=== PATIENT | female | born 1955 | race Caucasian/White ===

== ENCOUNTER → 2023-05-22 15:13 | Outpatient (REF) | payer MEDICARE, OTHER, SELFPAY ==
[2023-05-25 11:09] LABS: CA 27-29 133.3 U/mL (<=39.0)
== END ==
LOC: OIDL 15:13
PROVIDERS: ATTENDING PHYSICIAN Internal Medicine Hematology & Oncology
DX: C79.31 Secondary malignant neoplasm of brain (principal); C50.411 Malignant neoplasm of upper-outer quadrant of right female breast
CPT/HCPCS: 86300

== ENCOUNTER 2023-06-02 10:20 | Inpatient (IN) | payer MEDICARE, OTHER, SELFPAY ==
[2023-05-29 22:14] VITALS: BP 108/69
[2023-05-29 22:15] VITALS: BP 108/69
[2023-05-29 23:00] VITALS: BP 117/68
[2023-05-29 23:12] VITALS: BP 117/68
--- NOTE | 2023-05-29 23:55 | ED.GENMED ---
Addendum entered and electronically signed by Germain Wang DO 05/30/23 08:08:
6 AM ER attending
Patient currently waiting for family to pick her up
RN received a call from son he is concerned about her discharge plan he is requesting case management and physical therapy
Daughter apparently works at [employer] and cannot get her until 3 PM
On exam patient resting comfortably malodorous cooperative tells me she lives with her daughter and her zendejas retriever
At this point patient clearly cannot go home on her own, no family here to take her home, concur with PT and case management consult
Will asked hospitalist to admit
Suspect we will have to look into goals of care palliative hospice etc.
Original Note:
History of Present Illness
General
Chief Complaint: Fall
Source: patient and family (Daughter)
Exam Limitations: none
Time Seen by Provider: 05/29/23 23:23
Nursing documentation reviewed up to this point in time: agreed with
Travel History
Have you had any contact with someone who has COVID-19?: No
Do you have any symptoms of coronavirus? Fever > 100 degrees, chills, cough, shortness of breath, sore throat, loss of taste or smell, muscle aches, or headache?: No
History of Present Illness
History of Present Illness:
68-year-old female with past medical history as documented presents to the emergency room for evaluation of generalized weakness. She had a fall tonight. Patient says she feels generally weak chronically and has had progressive functional decline
in the setting of chemotherapy for metastatic breast cancer. She currently is in a wheelchair chronically and lives with her daughter who helps to transfer her to armchair and to bed. Today patient says she has been feeling a bit more weak than
usual. She ate dinner with her daughter and when daughter wheeled her to the bathroom patient had trouble assisting with transfer fell from ground-level onto her knees. She did not hit her head according to daughter. Daughter could not lift
patient on her own and patient was too weak to stand and so EMS called to bring patient to the hospital. While patient and daughter both deny head trauma patient has an abrasion on the center of her forehead that is new according to both daughter
and patient. Patient says she has some mild right knee pain since the fall as well. She denies any other complaints including neck pain, back pain, chest pain, abdominal pain. Aside from feeling weak today she has not had any other specific
symptoms such as cough, fever, chills, urinary symptoms, chest pain, shortness of breath. She believes she may be dehydrated as she says that she does not eat or drink very much because of the chemotherapy.
Past History
Past History
ED Past Medical History: Asthma, Cancer (Breast with Lumpectomy and radiation 2003), Other (DVT, PE, IBS) and Other (Anxiety)
ED Past Surgical History: Orthopedic (bilateral hip replacements L 2020, R 2021)
Social History
Tobacco: Non-smoker
Alcohol: None
Drug: None
Personal:
Living: with family
Employment: Not employed
Family History
Family History: Other (Reviewed and noncontributory)
Review of Systems
Review of Systems
All Other Systems: ROS reviewed and negative except as documented in HPI and ROS
Constitutional: Reports fatigue; Denies fever or chills
EENT: Denies sore throat or runny nose
Respiratory: Denies cough or trouble breathing
Cardiac: Denies chest pain
ABD/GI: Denies abdominal pain, nausea, vomiting or diarrhea
: Denies dysuria, frequency or flank pain
Musculoskeletal: Reports joint pain (Right knee pain); Denies neck pain or back pain
Neurological: Reports weakness (Generalized); Denies headache or numbness
Phy Exam
Physical Exam
Physical Exam:
General: Awake, alert; no acute distress
Head: Normocephalic, minor abrasion of the center of her forehead
Eyes: Conjunctiva normal, pupils equal round and reactive to light bilaterally
Throat: Airway intact, dry mucous membranes; poor dentition
Neck: Trachea midline, no tenderness of the cervical spine
Back: No signs of trauma to the back or flank and no tenderness of the thoracic or lumbar spine
Lungs: Clear to auscultation bilaterally, no wheezing, rales, rhonchi
Heart: Regular rate and rhythm, no murmurs, gallops, or rubs
Abd: Soft, non distended, nontender
Neuro: Cranial nerves grossly intact, speech fluid
Extremities: Patient has mild medial right knee tenderness but no significant joint effusion, full range of motion with only mild discomfort; she has no pain with manipulation of the right patella, no lateral joint line tenderness, no tenderness of
the right lower leg; rest of extremities are atraumatic and she moves them through comfortable range of motion; she has good pulses in all extremities
Scores
Heart Failure Risk
Heart Failure Risk Score: Not Applicable
Heart Score for Chest Pain Patients
STEMI patient?: Not applicable
Withdrawal Assessment of Alcohol
Withdrawal Assessment Completed?: Not applicable
Course
Orders/Labs/Results
Orders:
Orders
05/29/23 23:50
COVID-19 Antigen Urgent
Source: Nasal Swab
Complete Blood Count/With Diff Urgent
Comprehensive Metabolic Panel Urgent
Magnesium Urgent
05/29/23 23:51
Electrocardiogram (*1) Urgent
Reason for Study: Fatigue / Weakness
EKG- Treatment ONCE
Urinalysis Reflex To Culture Urgent
Date Specimen was Collected: 05/30/23
Time Specimen was Collected: 03:09
Influenza A+B Rapid Molecular Urgent
CHRISTIANE Source: Nasal Swab
Specimen Description:
05/29/23 23:54
0.9% Sodium Chloride 1000 ml [Nss] 1,000 ml IV BOLUS
05/30/23 00:01
CR Chest - 2 Views Urgent
Reason For Exam: weakness
CR Knee- Right 4 Or More View* Urgent
Reason For Exam: right medial knee pain
05/30/23 00:15
CT Head W/o Iv Contrast Urgent
Reason For Exam: fall with frontal
05/30/23 03:13
Urine Microscopic Reflex Cult Urgent
Urine Culture Urgent
CHRISTIANE Source: U
Specimen Description:
Date Specimen was Collected: 05/30/23
Time Specimen was Collected: 03:09
Abnormal Lab Results
05/30/23 05/30/23
00:08 03:13
RBC 3.58 L 10^6/uL
(4.20-5.40)
Hgb 11.3 L g/dL
(12.0-16.0)
Hct 31.9 L %
(37.0-47.0)
MCH 31.6 H pg
(27.0-31.0)
RDW 19.2 H %
(11.5-14.5)
Absolute Neuts (auto) 6.8 H 10^3/uL
(1.4-6.5)
Absolute Lymphs (auto) 0.7 L 10^3/uL
(1.2-3.4)
Neutrophils % 84.9 H %
(42.2-75.2)
Lymphocytes % 8.4 L %
(20.5-51.1)
Sodium 132 L mmol/L
(135-145)
Chloride 108 H mmol/L
(98-107)
Carbon Dioxide 19 L mmol/L
(22-30)
Glucose 134 H mg/dl
(70-99)
Alkaline Phosphatase 227 H U/L
(38-126)
Urine Ketones 1+ A
(Negative)
Urine Nitrite (Reflex) Positive A
(Negative)
Urine Bilirubin 1+ A
(Negative)
Leukocyte Esterase Rfl 1+ A
(Negative)
05/30/23 00:08
05/30/23 00:08
Vital Signs
Initial and Last Documented VS:
Initial Vital Signs
Resp BP Pulse Ox
19 108/69 100
05/29/23 22:14 05/29/23 22:14 05/29/23 22:14
Last Documented Vital Signs
Temp Pulse Resp BP Pulse Ox
36.4 C 83 15 130/69 98
05/29/23 22:15 05/30/23 03:15 05/30/23 03:15 05/30/23 03:00 05/30/23 02:45
MDM/Problems Addressed
Differential Diagnosis Includes:
Differential diagnosis for generalized weakness is wide and includes but is not limited to: Dehydration, anemia, electrolyte derangement, infection, chemotherapy/medication side effect
MDM/Problems Addressed:
68-year-old female presents for evaluation of generalized weakness today also had a minor fall onto her knees with questionable head trauma (she denies hitting her head and symptoms her daughter but she does have a new abrasion on her forehead).
Vital signs normal here, exam as above. Plan to place an IV check labs including CBC and CMP. Will check an EKG. Will swab for COVID and flu. Check CT head. Will check urinalysis and a chest x-ray. Sent for an x-ray of the knee as well. Will
provide some fluids. Monitor closely reassess after the above.
Labs reviewed: CBC shows slight anemia stable. CMP shows no clinically significant abnormalities. Viral swabs are negative. X-ray of the chest no pneumonia. X-ray of the knee no fracture.
Urinalysis positive for infection which certainly could be a cause for her increased weakness recently. Fortunately she has no signs of sepsis labs have otherwise been reassuring. She is wheelchair-bound at baseline. No clear indication for
admission I think it is reasonable to treat with a dose of IV antibiotics here and discharged on oral antibiotic. Patient comfortable this plan.
Chronic conditions affecting care:
Metastatic breast cancer
*Radiology
Radiology exam reviewed: preliminary read by ED provider and radiology read reviewed
*Pulse Oximetry
Patient hypoxic: no
*Critical Care Note
Total Time (30-74mins, 75-104mins- exclusive of procedures): Not Applicable
Data Reviewed
Review of Other/Old Records Reveals: Labs and Records
Source: patient and family (Spoke directly with her daughter on the phone)
ED Attending Note
-
Portions of this chart may have been created with voice recognition software.� Occasional wrong word or��sound alike� substitutions may have occurred due to the inherent limitations of voice recognition software.
Discharge Plan
Departure
Patient Disposition: Home (Routine Discharge)
Date of Disposition: 05/30/23
Time of Disposition: 03:46
Patient with high blood pressure during this ER visit?: No
Discharge Problem:
Acute UTI, Weakness, Sprain of knee
Instructions: Generalized Weakness (DC), Acute Cystitis (DC), Knee Sprain ED
Prescriptions:
New
cefdinir 300 mg capsule
300 mg PO BID Qty: 14 0RF
No Action
albuterol sulfate 18 GM HFA aerosol inhaler
2 puff IH R Q6HPRN PRN (Reason: asthma)
megestrol 400 mg/10 mL (40 mg/mL) Suspension
8,000 mg PO DAILY
Eliquis 2.5 mg Tablet
2.5 mg PO BID
fluticasone propion-salmeterol [Advair Diskus] 250-50 mcg/dose Blister With Device
1 inh INHALATION R BID
levetiracetam 500 mg tablet
1,000 mg PO BID
pantoprazole [Protonix] 40 mg tablet,delayed release (DR/EC)
40 mg PO DAILY
letrozole 2.5 mg tablet
2.5 mg PO DAILY
quetiapine [Seroquel] 50 mg tablet
50 mg PO HS
dronabinol 2.5 mg Capsule
2.5 mg PO BID Qty: 60 1RF
sodium bicarbonate 650 mg Tablet
650 mg PO BID Qty: 8 0RF
ondansetron 4 mg tablet,disintegrating
4 mg PO Q8HPRN PRN (Reason: nausea and vomiting) Qty: 30 0RF
cephalexin 500 mg capsule
500 mg PO TID Qty: 15 0RF
Referrals:
Renard Persaud MD [Family Provider] - Call in 1-3 days for appt
Activity Restrictions/Additional Instructions:
Thank you for visiting the Emergency Department at [facility].
1. Please schedule a follow up appointment as directed. Call first thing tomorrow morning to make an appointment.
2. If indicated, please take your medications as instructed and indicated on discharge paperwork.
3. If any of your symptoms do not improve, or persist, or become more severe within 6-12 hours, please return to the emergency department for further care.
4. Please return to the emergency department if you develop a headache, neck pain/stiffness, fever greater than 100.4F, chest pain, shortness of breath, persistent nausea, vomiting, slurred speech, difficulty walking, numbness/tingling, weakness,
signs of infection or any other symptoms that are worrisome to you.
Please call [phone] if you have any questions.
Interventions
Interventions:
*Risk Screen - Suicide Last Done: 05/29/23 22:22
*General Assessment Last Done: 05/29/23 22:22
*Neglect/Abuse Screening Last Done: 05/29/23 22:22
*ED COVID-19 Vaccine History Last Done: 05/29/23 22:21
ED-Musculoskeletal Assessment Last Done: 05/29/23 22:23
ED- Neurological Assessment Last Done: 05/29/23 22:22
ED-Skin Assessment Last Done: 05/29/23 22:23
[2023-05-30] VITALS (15 sets, daily range): BP systolic 115–147; BP diastolic 58–103; PULSE 91; O2SAT 99; BMI 27.5
[2023-05-30 00:55] LABS: COVID-19 Antigen Negative (Negative)
[2023-05-30 01:14] LABS: % Basophils 0.6 % (0-2); % Eosinophils 0.6 % (0-6); % Immature Granulocytes 0.4 % (0-0.5); % Lymphocytes 8.4 % (20.5-51.1); % Monocytes 5.1 % (1.7-9.3); % Neutrophils 84.9 % (42.2-75.2); Absolute Basophils 0.1 10^3/uL (0-0.2); Absolute Eosinophils 0.1 10^3/uL (0-0.7); Absolute Lymphocytes 0.7 10^3/uL (1.2-3.4); Absolute Monocytes 0.4 10^3/uL (0.1-0.6); Absolute Neutrophils 6.8 10^3/uL (1.4-6.5); Hematocrit 31.9 % (37.0-47.0); Hemoglobin 11.3 g/dL (12.0-16.0); Mean Corp Hgb Conc. 35.4 g/dL (33.0-37.0); Mean Corpuscular Hgb 31.6 pg (27.0-31.0); Mean Corpuscular Volume 89.1 fL (81.0-99.0); Mean Platelet Volume 9.1 fL (7.4-10.4); Nucleated Red Blood Cells % 0 %; Platelet Count 280 10^3/uL (130-400); Red Blood Cell Count 3.58 10^6/uL (4.20-5.40); Red Cell Dist. Width 19.2 % (11.5-14.5)
[2023-05-30] MEDS: NSS 1000 IV ×2 (01:27→08:09)
[2023-05-30 01:29] LABS: ALT (SGPT) 11 U/L (0-35); AST (SGOT) 22 U/L (14-36); Albumin 3.5 g/dl (3.5-5.0); Alkaline Phosphatase 227 U/L (38-126); Blood Urea Nitrogen 13 mg/dl (7-17); Calcium 8.8 mg/dl (8.4-10.2); Carbon Dioxide 19 mmol/L (22-30); Chloride 108 mmol/L (98-107); Glucose 134 mg/dl (70-99); Magnesium 1.9 mg/dl (1.6-2.3); Potassium 3.7 mmol/L (3.5-5.1); Sodium 132 mmol/L (135-145); Total Bilirubin 0.9 mg/dl (0.2-1.3); Total Protein 6.6 g/dl (6.3-8.2); eGFR > 60.00
[2023-05-30 03:31] LABS: Urine Albumin Trace (Neg - Trace); Urine Bilirubin 1+ (Negative); Urine Character Clear (Clear); Urine Color Yellow; Urine Glucose Negative (Negative); Urine Ketone 1+ (Negative); Urine Leukocyte 1+ (Negative); Urine Nitrite Positive (Negative); Urine Occult Blood Negative (Negative); Urine Urobilinogen Negative (Neg - 1+)
[2023-05-30 03:39] LABS: Urine Amorphous Seen; Urine Mucus Moderate; Urine Squamous Cell >30 /LPF (Few)
[2023-05-30 03:40] LABS: Urine Bacteria Many (Negative)
[2023-05-30 03:44] LABS: Urine Red Blood Cell 0-2 /HPF (0-2); Urine White Cell 30-40 /HPF (0-5)
[2023-05-30] MEDS: ROCEPHIN 1000 MG IV ×2 (03:58→12:02)
--- NOTE | 2023-05-30 08:26 | CM ---
Addendum entered by Vanessa Carlisle RN 05/30/23 09:55:
CM spoke with son Corby [phone]. CM confirmed that there is no POA at this time and the family is working on POA paperwork.
Corby stated that he feels the patient's functional status has declined and his sister Merlene who is the patient's caregiver is overwhelmed. Merlene works real time analyst so patient is left home alone during that time. Patient is known to [facility]. Corby is
requesting possible SNF options so patient can regain some function and patient's daughter's caregiver burden is lightened.
CM discussed with patient's son that patient may not meet three night inpatient stay criteria for Medicare to pay for SNF. CM confirmed with [facility] leather goods sales representative that patient would be eligible for the [facility] program.
CM presented this to the son and he was agreeable understanding there would be limited choices of SNF that participate in the program. CM will send referrals to [facility].
Original Note:
CM reviewed medical records and previous admissions. [facility] lia[facility] to confirm if patient was still active with them. CM will follow for discharge planning needs.
--- NOTE | 2023-05-30 10:24 | HPS.HSE ---
Family Physician
-
Family Physician: Renard Persaud
Chief Complaint
-
weakness
History of Present Illness
68-year-old female with metastatic breast cancer. Lives at home with daughter. Patient is mostly chair/wheelchair bound. States that her daughter has to give total from chair and put on the wheelchair and had blood. She is also incontinent most
of the time. Patient states that she is 'Prisoner in my home' because of her lack of mobility. She states that she was taking 2 different hormonal agents which caused neuropathy. She was feeling weak hand and daughter tried to help her to
bathroom. She slowly went down to the floor. Daughter: And very weak so EMS was called and she was brought into the hospital. She denies any pain other than her inability to walk neuropathy which has been progressive. No headache
Medical History
Past Medical History
Past Medical History: Reports Seizures
Additional Past Medical History:
Breast cancer with lumpectomy, radiation and tamoxifen in 2003, Metastatic breast cancer now ER/MO positive and HER2 negative ,brain mets with vasogenic edema and seizures was on Keppra . Completed brain radiation in November 2022.And started
Ibrance December , neuropathy NOS with ambulatory dysfunction, asthma, IBS, arthritis, DVT and PE on Eliquis, with recurrence October 2022 while off of Eliquis. Depression, anxiety chronic back pain on long-term disability
Past Surgical History: Reports Tonsilectomy and Other
Additional Past Surgical History:
Lumpectomy for breast cancer, left and right hip surgery
Social History
Tobacco: Non-smoker
Alcohol: None
Drug: None
Personal:
Living: With Family
Employment: Disabled
Family History
Family History: Cancer (father stomach ca, Mom uterine ca)
Allergies / Home Medications
Allergies reflects when Allergies were last updated in [facility].
Home Medications with original date entered in [facility]
Allergy/Medication List:
Allergies
Allergy/AdvReac Type Severity Reaction Status Date / Time
nickel Allergy Rash Verified 05/29/23 22:30
pneumococcal vaccine Allergy afraid of, Verified 05/29/23 22:30
unk if
allergic
Home Medications
apixaban 2.5 mg tablet (Eliquis) 2.5 mg PO BID Blood Clot Prevention/Tx 04/08/23
fluticasone 250 mcg-salmeterol 50 mcg/dose blistr powdr for inhalation (Advair Diskus) 1 inh inhalation R BID Lung/Breathing Issues 04/08/23
megestrol 400 mg/10 mL (40 mg/mL) oral suspension 800 mg PO DAILY appetite stimuant/hormonal agent 04/08/23
pantoprazole 40 mg tablet,delayed release (Protonix) 40 mg PO DAILY Gastrointestinal Issue 04/08/23
quetiapine 50 mg tablet (Seroquel) 50 mg PO HS Neurological Condition 04/08/23
dronabinol 2.5 mg capsule 2.5 mg PO BID #60 caps 04/09/23
ondansetron 4 mg disintegrating tablet 4 mg PO Q8HPRN PRN nausea and vomiting #30 tabs 04/09/23
albuterol sulfate 90 mcg/actuation aerosol inhaler 2 puff inhalation R Q4HPRN PRN sob 05/30/23
cefdinir 300 mg capsule 300 mg PO BID #14 caps 05/30/23
gabapentin 100 mg capsule 300 mg PO HS 05/30/23
levetiracetam 1,000 mg tablet 1,000 mg PO Q12H 05/30/23
Review of Systems
-
A 12 point ROS was completed and negative except as noted: Yes
Constitutional: Reports Fatigue
Respiratory: Denies Trouble Breathing
Cardiac: Denies Chest Pain
Neurological: Reports Weakness and Numbness
Psych: Reports Depression
Physical Exam
Vital Signs
Vital Signs
Temp Pulse Resp BP Pulse Ox
97.6 F 78 18 140/61 98
05/29/23 22:15 05/30/23 10:00 05/30/23 10:00 05/30/23 10:00 05/30/23 02:45
Physical Exam
General: Conversant and Other (Halitosis, Poor Oral Hygene, Malodorous, Disheveled appearence)
Respiratory: Clear
Cardiac: S1/S2 and Regular Rhythm
GI: Soft, Non Tender and Normal Bowel Sounds
Skin: Warm
Neuro: AO x 3 and Other (Proximal muscle weakness, good distal strengthMuscle wasting bilateral hands good hand grasp again proximal muscles are very weak, chronic numbness of lower extremities and hands)
Psych: Intact Judgment/Insight
Laboratory Results
-
05/30/23 00:08
05/30/23 00:08
Laboratory Results
Total Bilirubin 0.9 mg/dl (0.2-1.3) 05/30/23 00:08
AST 22 U/L (14-36) 05/30/23 00:08
ALT 11 U/L (0-35) 05/30/23 00:08
Alkaline Phosphatase 227 U/L (38-126) H 05/30/23 00:08
Data Reviewed
-
Diagnostic Radiology: Image Personally Visualized and interpreted (Chest x-ray metastatic osseous lesions no acute changes) and Report Reviewed by me (X-ray of the knee-right moderate tricompartment osteoarthritis with small to moderate
suprapatellar joint effusion)
CT Scan: Report Reviewed by me (Head CT no acute. Mastoiditis, metastasis right parietal)
Medical Tests (Nuc Med, Echo, EKG etc): Image Personally Visualized and interpreted (Sinus rhythm with PVCs, nonspecific ST-T changes)
Impression/Plan
-
IMPRESSION/PLAN:
# Generalized weakness/deconditioning
Patient is in very poor shape in terms of hygiene, unkempt appearance poor oral hygiene
Global weakness and deconditioning likely secondary to neuropathy, malignancy and being on treatment
PT OT
Placement if possible
Head CT metastatic lesion again found
# UTI-ceftriaxone
Wait for cultures
# Mild hyponatremia-likely SIADH check serum and urine osmolality and urine sodium
# History of right breast cancer-diagnosed in 2003 treated with radiation, lumpectomy and possibly tamoxifen.
Follows with Dr. Renay Gonzalez.
October 2022-diagnosed with multiple dural based [employer] mets with vasogenic edema-placed on Keppra and Decadron. Not on Decadron anymore. She completed radiation treatment in November
Now has metastatic breast cancer with right-sided breast mass in the upper outer quadrant, mediastinal adenopathy, lung nodules, bone metastasis. Breast biopsy invasive ductal carcinoma ER/MO positive and HER2 negative.
Patient was started on letrozole 2.5 mg daily and Ibrance in December 2022
Started on Faslodex March 2023 because of progression on Ibrance plus letrozole.
Last PET scan 04/02/2023-interval worsening of disease.
Heme eval - Prognosis?
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
# Chronic back pain
#Anxiety depression-Seroquel
# Malnutrition-type unclear
Continue dronabinol, Megace
# Neuropathy-likely secondary to malignancy/chemo/hormonal therapy
Continue gabapentin
# Asthma-stable exam-continue Advair, albuterol inhalers as needed
# Gait dysfunction mostly wheelchair/chair bound.
# Osteoarthritis
# Obesity
# IBS
# DVT prophylaxis-Eliquis
# CODE STATUS discussed with the patient in detail she wants to be a full code
D/W ER attending.
--- NOTE | 2023-05-30 11:24 | CON.ONC ---
Addendum entered and electronically signed by Fracisco Knott MD 05/30/23 15:12:
Oncology Addendum:
Patient seen and evaluated - agree w/ HHAS note and plan as outlined
-metastatic breast cancer presenting w/ profound weakness and ambulatory dysfunctoin
-PT/OT consult
-cont suppotive care
-goals of care discussions ongoing
Will continue to follow with you.
Original Note:
Impression
Impression
Metastatic breast cancer s/p lumpectomy/XRT (2003) with mets to brain (XRT 11/2022), bone and lung (Ibrance 12/2022)
Palliative hormonal therapy (Letrozole discontinued, Faslodex on hold as of 05/22/23)
Profound weakness
Failure to thrive
Dry heaving, poor PO intake
Traumatic falls, ambulatory dysfunction
Acute urinary tract infection
Anxiety
Plan
Plan
04/02/23 PET/CT: Small�FDG�avid�posterior�right�iliac�bone�lesion�with�max�SUV�11.1�(previously�3.4�and�less�
discrete).�Otherwise�extensive�diffuse�widespread�non-FDG�avid�sclerotic�lesions�throughout�all�the�visualized�
bones,�markedly�progressed�from�prior�and�suggestive�of�treated/quiescent�disease.��
05/25/23 CA 27-29: 133.3
Discontinued Letrozole, Faslodex is on hold x2 weeks (as of 05/22/23)
05/29 Urinalysis +nitrites, culture pending
Treatment of acute UTI per primary team: Ceftriaxone
Physical therapy evaluation
Nutrition/nutrient management specialist consult
Supportive care
SNF placement
Consider psych eval
Goals of care discussion may be warranted due to profound progressive weakness, failure to thrive, and worsening performance status. Daughter is unable to care for patient at home. Patient states she is not ready to discuss palliative care or
hospice. She requests full code. Patient is scheduled to return to [place] for potential rechallenge of Faslodex 06/05. Possible option for [facility] therapy per Dr. Gonzalez's most recent office note. The office has been notified of hospital
admission and follow up will be adjusted accordingly. We will follow.
Patient History
History of Present Illness
June Parker is a 68 year old female known to Dr. Gonzalez at [facility] for history of metastatic breast cancer. Recent PET performed at the beginning of the year showed marked interval worsening of sclerotic metastatic disease consistent with
progression. Letrozole was discontinued and Faslodex is being held for 2 weeks (as off 05/22/23).
Patient presented to the ER yesterday, , via EMS, complaining of worsening generalized weakness. She has required a wheelchair and assist x1 at home. She, unfortunately, suffered a fall to her knees in the bathroom. Patient and daughter denied
head trauma/LOC. She repots mild knee pain from the fall, poor oral intake, and dehydration. She states 'nothing tastes good' and she has little to no appetite. She reports dry heaving bilious material at home and intermittent nausea. She tries to
hydrate adequately with water. Denies fever, chills.
Past-Medical/Surgical History
Metastatic breast cancer (ER/[place] pos, HER2 neg) w/ mets to brain, bone (lumpectomy 2003, XRT 2022, Ibrance 2022)
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
Ambulatory dysfunction w/ recent falls
Hx Vasogenic edema, seizures (Keppra)
Depression/anxiety
B/l hip replacements (2020,2021)
Chronic back pain
Hx long-term use of aromatase inhibitors
Patient Medication
Medication Instructions Recorded Confirmed Last Taken Type
apixaban 2.5 mg tablet (Eliquis) 2.5 mg PO BID Blood Clot 04/08/23 05/30/23 05/29/23 History
Prevention/Tx
fluticasone 250 mcg-salmeterol 50 1 inh inhalation R BID 04/08/23 05/30/23 05/29/23 History
mcg/dose blistr powdr for Lung/Breathing Issues
inhalation (Advair Diskus)
megestrol 400 mg/10 mL (40 mg/mL) 800 mg PO DAILY appetite 04/08/23 05/30/23 05/29/23 History
oral suspension stimuant/hormonal agent
pantoprazole 40 mg tablet,delayed 40 mg PO DAILY Gastrointestinal 04/08/23 05/30/23 04/08/23 History
release (Protonix) Issue
quetiapine 50 mg tablet (Seroquel) 50 mg PO HS Neurological Condition 04/08/23 05/30/23 05/29/23 History
dronabinol 2.5 mg capsule 2.5 mg PO BID #60 caps 04/09/23 05/30/23 05/29/23 Rx
ondansetron 4 mg disintegrating 4 mg PO Q8HPRN PRN nausea and 04/09/23 05/30/23 2 Days Ago Rx
tablet vomiting #30 tabs ~05/28/23
albuterol sulfate 90 mcg/actuation 2 puff inhalation R Q4HPRN PRN sob 05/30/23 05/30/23 Unknown History
aerosol inhaler
cefdinir 300 mg capsule 300 mg PO BID #14 caps 05/30/23 Unknown Rx
gabapentin 100 mg capsule 300 mg PO HS 05/30/23 05/30/23 05/29/23 History
levetiracetam 1,000 mg tablet 1,000 mg PO Q12H 05/30/23 05/30/23 05/29/23 History
Active Medications
Generic Name Dose Route Start Last Admin
Trade Name Freq PRN Reason Stop Dose Admin
Apixaban 2.5 mg 05/30/23 11:02
Apixaban (Eliquis) 2.5 Mg Tablet PO 06/27/23 11:01
BID ANTONIO
Ceftriaxone Sodium 1,000 mg 05/30/23 12:00
Ceftriaxone 1000 Mg / 10 Ml Vial IV
Q24H ANTONIO
Review of Systems
-
History Source: Patient, Coordinated Provider and Records
Constitutional: Reports No Appetite and Weakness
EENT: Reports No Symptoms
Respiratory: Reports No Symptoms
Cardiac: Reports No Symptoms
GI: Reports Nausea and Anorexia
Breast: Reports N/A
: Reports UTI
Musculoskeletal: Reports Muscle Weakness
Skin: Reports Other (abrasion)
Neuro: Reports Weakness
Endocrine: Reports No Symptoms
Hematologic/Lymphatic: Reports No Symptoms
Allergy / Immunology: Reports No Symptoms
Psych: Reports Anxious
Physical Exam
-
Patient resting on stretcher. She denies acute pain. She is adamant that she wishes to be Full Code, resuscitated if needed, and 'treated like my cancer is curable'. She is not interested in goals of care, palliative care, or hospice discussion. She
is very concerned that she cannot eat.
General: Comfortable, Conversant, Appears Chronically Ill and Obese; Negative Fever or Chills
HEENT: Other (halitosis, poor oral hygiene)
Cardiology: S1 and S2
Pulmonary: Clear
GI: Normal Bowel Sounds
Genito-Urinary: Deferred by me
Extremities: Pulses Present
Skin: Warm, Dry and Other (pallor, abrasion to forehead )
Hematologic / Lymphatic: No Petechiae
Psych: Anxious and Other (pressured speech)
Labs
Lab Results
WBC 8.0 10^3/uL (4.8-10.8) 05/30/23 00:08
RBC 3.58 10^6/uL (4.20-5.40) L 05/30/23 00:08
Hgb 11.3 g/dL (12.0-16.0) L 05/30/23 00:08
Hct 31.9 % (37.0-47.0) L 05/30/23 00:08
MCV 89.1 fL (81.0-99.0) 05/30/23 00:08
MCH 31.6 pg (27.0-31.0) H 05/30/23 00:08
MCHC 35.4 g/dL (33.0-37.0) 05/30/23 00:08
RDW 19.2 % (11.5-14.5) H 05/30/23 00:08
Plt Count 280 10^3/uL (130-400) 05/30/23 00:08
MPV 9.1 fL (7.4-10.4) 05/30/23 00:08
Abs Immat Gran (auto) 0.0 10^3/uL (0-0.05) 05/30/23 00:08
Absolute Neuts (auto) 6.8 10^3/uL (1.4-6.5) H 05/30/23 00:08
Absolute Lymphs (auto) 0.7 10^3/uL (1.2-3.4) L 05/30/23 00:08
Absolute Monos (auto) 0.4 10^3/uL (0.1-0.6) 05/30/23 00:08
Absolute Eos (auto) 0.1 10^3/uL (0-0.7) 05/30/23 00:08
Absolute Basos (auto) 0.1 10^3/uL (0-0.2) 05/30/23 00:08
Immature Gran % 0.4 % (0-0.5) 05/30/23 00:08
Neutrophils % 84.9 % (42.2-75.2) H 05/30/23 00:08
Lymphocytes % 8.4 % (20.5-51.1) L 05/30/23 00:08
Monocytes % 5.1 % (1.7-9.3) 05/30/23 00:08
Eosinophils % 0.6 % (0-6) 05/30/23 00:08
Basophils % 0.6 % (0-2) 05/30/23 00:08
Creatinine 0.8 mg/dL (0.6-1.0) 05/30/23 00:08
Vital Signs
Vital Signs
Temp Pulse Resp BP Pulse Ox
97.6 F 79 23 147/85 98
05/29/23 22:15 05/30/23 11:15 05/30/23 11:15 05/30/23 11:00 05/30/23 02:45
05/30/23 CXR: Couple of ill-defined densities/nodules projecting over the peripheral aspects of the right mid to lower lung, likely corresponding to patient's known sclerotic metastatic osseous lesions versus less likely nodules.
05/30/23 Knee Xray: No acute fractures appreciated.Moderate tricompartmental osteoarthritis with likely small to moderate suprapatellar joint effusion.
05/30/[address]: No acute intracranial abnormality.Opacified mastoid air cells suggesting mastoiditis. Ill defined lucency within the right parietal calvarium, better characterized on prior MRI and felt to represent a metastasis. This appears
decreased in size compared to prior CT.
[2023-05-30 11:49] LABS: Osmolality Serum 286 mOsm/kg (275-300)
[2023-05-30] MEDS: KEPPRA 1000 MG PO ×2 (12:02→21:30)
[2023-05-30] MEDS: ELIQUIS 2.5 MG PO ×2 (12:02→21:30)
[2023-05-30 13:20] LABS: Cortisol, Random 12.4 ug/dl; TSH 1.84 uIU/ml (0.47-4.68)
[2023-05-30] MEDS: MEGACE ORAL SUSPENSION 800 MG PO (14:29)
[2023-05-30] MEDS: PROTONIX 40 MG PO (14:29)
[2023-05-30] MEDS: MARINOL 2.5 MG PO (16:15)
[2023-05-30 18:14] LABS: Osmolality Urine 599 mOsm/kg (300-900)
[2023-05-30 18:55] LABS: Urine Sodium 187 mmol/L (30-90)
[2023-05-30] MEDS: ADVAIR HFA 115/21 MCG INHALER 2 PUFF INH (19:53)
[2023-05-30] MEDS: SEROQUEL 50 MG PO (21:30)
[2023-05-30] MEDS: NEURONTIN 300 MG PO (21:31)
[2023-05-31 07:57] VITALS: BP 135/65
[2023-05-31] MEDS: ADVAIR HFA 115/21 MCG INHALER 2 PUFF INH ×2 (08:03→19:21)
[2023-05-31] MEDS: ELIQUIS 2.5 MG PO ×2 (09:05→20:01)
[2023-05-31] MEDS: MEGACE ORAL SUSPENSION 800 MG PO (09:06)
[2023-05-31] MEDS: KEPPRA 1000 MG PO ×2 (09:06→20:01)
[2023-05-31] MEDS: PROTONIX 40 MG PO (09:06)
[2023-05-31] MEDS: MARINOL 2.5 MG PO ×2 (09:06→17:39)
--- NOTE | 2023-05-31 10:29 | CM ---
Chart reviewed and per physical therapy notes recommendation is for skilled placement. Referrals sent to facilities however no final acceptance.
Plan; To follow up with possible skilled placement.
[2023-05-31 12:15] VITALS: BP 113/73; PULSE 95; O2SAT 98
[2023-05-31 13:13] VITALS: BP 113/73; PULSE 95; O2SAT 98
[2023-05-31] MEDS: FLUSH (NSS) 2 FLUSH IV (13:22)
[2023-05-31] MEDS: ROCEPHIN 1000 MG IV (13:22)
[2023-05-31] MEDS: STERILE WATER FOR INJECTION 10 ML IV (13:22)
--- NOTE | 2023-05-31 13:34 | W.PN.HOSP.TC ---
Today's Communication/Plan
-
BMP
IV fluids-do D5 normal saline for now given low sodium and poor urine output
Continue antibiotics
PT OT
May need placement
Assessment / Plan
Assessment / Plan
CVS: S1-S2 normal
Chest: CTA B/L
Abdomen: Soft, NT / Bowel sounds present
Extremities: No edema, normal pulses
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
Proximal muscle weakness, upper extremity and lower extremity
Neuropathy patient states [id number]
# Generalized weakness/deconditioning
Patient is in very poor shape in terms of hygiene, unkempt appearance poor oral hygiene
Global weakness and deconditioning likely secondary to neuropathy, malignancy and being on treatment
PT OT
Placement if possible
Head CT metastatic lesion again found
# UTI-ceftriaxone
Wait for cultures
# Diminished urine output-will give IV fluids 1 bag
# Mild hyponatremia-SIADH
# History of right breast cancer-diagnosed in 2003 treated with radiation, lumpectomy and possibly tamoxifen.
Follows with Dr. Renay Gonzalez.
October 2022-diagnosed with multiple dural based STITCH BONDING MACHINE OPERATOR mets with vasogenic edema-placed on Keppra and Decadron.� Not on Decadron anymore.� She completed radiation treatment in November
Now has metastatic breast cancer with right-sided breast mass in the upper outer quadrant, mediastinal adenopathy, lung nodules, bone metastasis.� Breast biopsy invasive ductal carcinoma ER/[place] positive and HER2 negative.
Patient was started on letrozole 2.5 mg daily and� Ibrance in December 2022
Started on Faslodex March 2023 because of progression on Ibrance plus letrozole.
Last PET scan 04/02/2023-interval worsening of disease.
Heme eval - Prognosis?
Dr. Knott discussed goals of care with the patient, sounded like she wants to continue with active treatments.
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
# Chronic back pain
#Anxiety depression-Seroquel
# Malnutrition-type unclear
Continue dronabinol, Megace
# Neuropathy-likely secondary to malignancy/chemo/hormonal therapy
Continue gabapentin
# Asthma-stable exam-continue Advair, albuterol inhalers as needed
# Gait dysfunction mostly wheelchair/chair bound.
Has been getting
She has pain and also proximal weakness
MRI T Spine
# Osteoarthritis
# Obesity
# IBS
# DVT prophylaxis-Eliquis
# CODE STATUS discussed with the patient in detail she wants to be a full code
D/W Case management
D/W nursing at bedside
Discussed with patient's daughter on the phone in detail. Family states that she walks all day and patient mostly sits in the chair. She could stand and get to commode or wheelchair in the past however she has not been doing that for the past few
days. She is been progressively getting worse. They were thinking about placing her.
Anticipated Discharge: > 48 hours
Subjective/Interval History
-
Date of Service: May 31, 2023
Objective Data
-
Labs:
Laboratory Results
05/31/23
13:30
Sodium Pending
Potassium Pending
Chloride Pending
Carbon Dioxide Pending
BUN Pending
Creatinine Pending
Glucose Pending
Calcium Pending
Vital Signs:
Vital Signs
Temp Pulse Resp BP Pulse Ox
98.1 F 81 16 135/65 99
05/31/23 07:57 05/31/23 08:07 05/31/23 08:07 05/31/23 07:57 05/31/23 09:00
[2023-05-31] MEDS: MILK OF MAGNESIA 30 ML PO (14:20)
[2023-05-31] MEDS: SENOKOT 8.59999999999999964 MG PO (14:20)
[2023-05-31] MEDS: MIRALAX 17 GRAMS PO (14:20)
[2023-05-31] MEDS: D5/0.9% SODIUM CHLORIDE 1000 IV (14:20)
[2023-05-31 14:30] LABS: Blood Urea Nitrogen 11 mg/dl (7-17); Calcium 8.5 mg/dl (8.4-10.2); Carbon Dioxide 16 mmol/L (22-30); Chloride 108 mmol/L (98-107); Estimated Creatinine Clearance 95 ml/min; Glucose 131 mg/dl (70-99); Potassium 3.3 mmol/L (3.5-5.1); Sodium 134 mmol/L (135-145); eGFR > 60.00
[2023-05-31 15:32] VITALS: BP 127/72
[2023-05-31] MEDS: KCL 40 MEQ PO (16:08)
[2023-05-31] MEDS: SODIUM BICARBONATE 650 MG PO ×2 (16:08→21:22)
--- NOTE | 2023-05-31 17:46 | PTCARENOTE ---
Made Dr. Hansen aware that pt had a small incontinent void this am but none since. Bladder scan at 1230 214ml. IVF started per orders. Bladder scanned pt at 1730 after a saturated incontinence episode for 0ml, will continue to monitor.
[2023-05-31] MEDS: COLACE 100 MG PO (20:01)
--- NOTE | 2023-05-31 20:03 | W.PN.ONC2 ---
Today's Communication / Plan
-
Pt with brain mets at diagnosis.
Progressed on initial therapy and has been generally intolerance of treatment.
I am concerned she may be developing new brain mets and/or leptomeningeal disease.
Plan is noted for MRI T-spine, needs brain and C-spine imaged as well.
Encouraged pt to consider placement as she is failing at home. We will revisit the subject once MRI's are done and resulted.
Impression
Impression
Metastatic breast cancer s/p lumpectomy/XRT (2003) with mets to brain (XRT 11/2022), bone and lung (Ibrance 12/2022)
Palliative hormonal therapy (Letrozole discontinued, Faslodex on hold as of 05/22/23)
Profound weakness
Failure to thrive
Dry heaving, poor PO intake
Traumatic falls, ambulatory dysfunction
Acute urinary tract infection
Anxiety
Plan
Plan
04/02/23 PET/CT: Small�FDG�avid�posterior�right�iliac�bone�lesion�with�max�SUV�11.1�(previously�3.4�and�less�
discrete).�Otherwise�extensive�diffuse�widespread�non-FDG�avid�sclerotic�lesions�throughout�all�the�visualized�
bones,�markedly�progressed�from�prior�and�suggestive�of�treated/quiescent�disease.��
05/25/23 CA 27-29: 133.3
Discontinued Letrozole, Faslodex is on hold x2 weeks (as of 05/22/23)
05/29 Urinalysis +nitrites, culture pending
Treatment of acute UTI per primary team: Ceftriaxone
Physical therapy evaluation
Nutrition/vehicle check in clerk consult
Supportive care
SNF placement
Consider psych eval
Subjective/Objective
Chief Complaint
Breast cancer, weakness, failure to thrive
Subjective
Pt with new lower extremity weakness, numbness in arms.
Vital Signs:
Vital Signs
Temp Pulse Resp BP Pulse Ox
97.9 F 99 20 127/72 100
05/31/23 15:32 05/31/23 19:22 05/31/23 19:22 05/31/23 15:32 05/31/23 19:22
Lab Results:
Laboratory Data
WBC 8.0 10^3/uL (4.8-10.8) 05/30/23 00:08
Hgb 11.3 g/dL (12.0-16.0) L 05/30/23 00:08
Plt Count 280 10^3/uL (130-400) 05/30/23 00:08
eGFR > 60.00 05/31/23 13:30
Physical Exam
Awake, alert
Poor dentition and dental hygeine
[2023-05-31] MEDS: SEROQUEL 50 MG PO (21:22)
[2023-05-31] MEDS: NEURONTIN 300 MG PO (21:22)
[2023-05-31] MEDS: SENOKOT 17.1999999999999993 MG PO (21:23)
[2023-05-31 23:50] VITALS: BP 129/68
[2023-06-01 06:54] LABS: Hematocrit 25.1 % (37.0-47.0); Mean Corp Hgb Conc. 35.1 g/dL (33.0-37.0); Mean Corpuscular Hgb 31.5 pg (27.0-31.0); Mean Platelet Volume 8.8 fL (7.4-10.4); Platelet Count 225 10^3/uL (130-400); Red Blood Cell Count 2.79 10^6/uL (4.20-5.40); Red Cell Dist. Width 19.6 % (11.5-14.5); White Blood Cell Count 4.4 10^3/uL (4.8-10.8)
[2023-06-01 07:10] LABS: Hemoglobin 8.8 g/dL (12.0-16.0)
[2023-06-01 07:17] LABS: Blood Urea Nitrogen 10 mg/dl (7-17); Calcium 8.3 mg/dl (8.4-10.2); Carbon Dioxide 18 mmol/L (22-30); Chloride 109 mmol/L (98-107); Estimated Creatinine Clearance 95 ml/min; Glucose 116 mg/dl (70-99); Magnesium 1.9 mg/dl (1.6-2.3); Potassium 3.6 mmol/L (3.5-5.1); Sodium 134 mmol/L (135-145); eGFR > 60.00
[2023-06-01 07:31] VITALS: BP 117/69
[2023-06-01] MEDS: ADVAIR HFA 115/21 MCG INHALER 2 PUFF INH ×2 (07:49→19:39)
--- NOTE | 2023-06-01 08:10 | PTCARENOTE ---
Made Dr. Hansen aware at this time of critical drop in Hgb to 8.8 this morning from 11.3 yesterday. No apparent signs of bleeding. Dr. Hansen feels like the drop is due to the IVF yesterday, will monitor.
[2023-06-01 08:51] LABS: Iron 45 ug/dl (37-170)
[2023-06-01 09:00] LABS: Percent Saturation 27 % (20-50); Total Iron Binding Capacity 163 ug/dl (265-497)
[2023-06-01] MEDS: ELIQUIS 2.5 MG PO ×2 (09:29→21:20)
[2023-06-01] MEDS: MEGACE ORAL SUSPENSION 800 MG PO (09:29)
[2023-06-01] MEDS: MARINOL 2.5 MG PO ×2 (09:29→16:45)
[2023-06-01] MEDS: KEPPRA 1000 MG PO ×2 (09:29→21:20)
[2023-06-01] MEDS: COLACE 100 MG PO ×2 (09:29→21:19)
[2023-06-01] MEDS: FLUSH (NSS) 1 FLUSH IV (09:30)
[2023-06-01] MEDS: PROTONIX 40 MG PO (09:30)
[2023-06-01] MEDS: SODIUM BICARBONATE 650 MG PO ×3 (09:30→21:20)
[2023-06-01] MEDS: MIRALAX 17 GRAMS PO (09:30)
[2023-06-01 09:42] LABS: Vitamin B12 459 pg/ml (239-931)
[2023-06-01] MEDS: ROCEPHIN 1000 MG IV (12:45)
[2023-06-01] MEDS: STERILE WATER FOR INJECTION 10 ML IV (12:45)
--- NOTE | 2023-06-01 15:36 | W.PN.ONC2 ---
Today's Communication / Plan
-
Await MRI T-spine.
Consider neuro eval, etiology of lower extremity weakness and upper extremity numbness remains elusive.
PS marginal for return to home. Daughter is school laboratory technician and has been trying to life pt herself. Hygeine poor.
Discussed placement which I think would help optimize PS so we could treat her. She feels strongly that she wants to be at home.
Impression
Impression
Metastatic breast cancer s/p lumpectomy/XRT (2003) with mets to brain (XRT 11/2022), bone and lung (Ibrance 12/2022)
Palliative hormonal therapy (Letrozole discontinued, Faslodex on hold as of 05/22/23)
Profound weakness
Failure to thrive
Dry heaving, poor PO intake
Traumatic falls, ambulatory dysfunction
Acute urinary tract infection
Anxiety
Plan
Plan
Discussed MRI brain and MRI C-spine, no explanation for her upper extremity numbness.
She states the numbness started when she started Faslodex started 04/24, second treatment 05/08, third treatment on hold due to multiple complaints.
Await MRI T-spine.
Subjective/Objective
Chief Complaint
Met breast cancer, failure to thrive
Subjective
Denies new complaint.
MRI C-spine and MRI brain done today.
Vital Signs:
Vital Signs
Temp Pulse Resp BP Pulse Ox
97.9 F 80 18 117/69 97
06/01/23 07:31 06/01/23 07:51 06/01/23 07:51 06/01/23 07:31 06/01/23 09:00
Lab Results:
Laboratory Data
WBC 4.4 10^3/uL (4.8-10.8) L 06/01/23 06:45
Hgb 8.8 g/dL (12.0-16.0) L D 06/01/23 06:45
Plt Count 225 10^3/uL (130-400) 06/01/23 06:45
eGFR > 60.00 06/01/23 06:45
Physical Exam
Unchanged. Awake, alert
Thought process impulsive and tangential
Orders
Orders
Orders From Last 24 Hours
06/01/23 06:48
MR Cervical Spine Without & W Routine
06/01/23 08:08
MR Brain W/o & With Contrast Routine
[2023-06-01 15:59] VITALS: BP 120/70
--- NOTE | 2023-06-01 16:34 | W.PN.HOSP.TC ---
Today's Communication/Plan
-
MRI of the thoracic spine
Disposition plan PT OT and placement
Assessment / Plan
Assessment / Plan
CVS: S1-S2 normal
Chest: CTA B/L
Abdomen: Soft, NT / Bowel sounds present
Extremities: No edema, normal pulses
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
Proximal muscle weakness, upper extremity and lower extremity
Neuropathy patient states [id number]
MRI of the brain-no new intraparenchymal brain metastasis. I do not think calvarial metastasis and metastatic dural enhancement in the inferior lateral right frontal region slightly decreased in comparison to MRI from . Decreased v
vasogenic edema in the right frontal lobe
Cervical spine MRI-diffuse osseous metastatic disease throughout the cervical spine and upper thoracic spine. No MRI evidence of pathological compression fracture or extraosseous metastatic soft tissue.
# Generalized weakness/deconditioning
Patient is in very poor shape in terms of hygiene, unkempt appearance poor oral hygiene
Global weakness and deconditioning likely secondary to neuropathy, malignancy and being on treatment
PT OT
Placement if possible
Head CT metastatic lesion again found
# UTI-ceftriaxone
Wait for cultures
#Anemia-
Iron studies
Drop in Hb due to IVF
# Diminished urine output-S/P 1 IVF
# Mild hyponatremia-SIADH
# History of right breast cancer-diagnosed in 2003 treated with radiation, lumpectomy and possibly tamoxifen.
Follows with Dr. Renay Gonzalez.
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
Now has metastatic breast cancer with right-sided breast mass in the upper outer quadrant, mediastinal adenopathy, lung nodules, bone metastasis.� Breast biopsy invasive ductal carcinoma ER/[place] positive and HER2 negative.
Patient was started on letrozole 2.5 mg daily and� Ibrance in December 2022
Started on Faslodex March 2023 because of progression on Ibrance plus letrozole.
Last PET scan 04/02/2023-interval worsening of disease.
Heme eval - Prognosis?
Dr. Knott discussed goals of care with the patient, sounded like she wants to continue with active treatments.
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
# Chronic back pain
#Anxiety depression-Seroquel
# Malnutrition-type unclear
Continue dronabinol, Megace
# Neuropathy-likely secondary to malignancy/chemo/hormonal therapy
Continue gabapentin
# Asthma-stable exam-continue Advair, albuterol inhalers as needed
# Gait dysfunction mostly wheelchair/chair bound.
Has been getting
She has pain and also proximal weakness
MRI T Spine pending
Metastasis cervical spine and brain
# Osteoarthritis
# Obesity
# IBS
# DVT prophylaxis-Eliquis
# CODE STATUS discussed with the patient in detail she wants to be a full code
D/W Oncology yesterday
D/W nursing at bedside
05/31/23-Discussed with patient's daughter on the phone in detail. Family states that she works all day and patient mostly sits in the chair. She could stand and get to commode or wheelchair in the past however she has not been doing that for the
past few days. She is been progressively getting worse. They were thinking about placing her.
Anticipated Discharge: 24 - 48 hours
Subjective/Interval History
-
Date of Service: June 01, 2023
Objective Data
-
Labs:
Laboratory Results
06/01/23
06:45
WBC 4.4 L
Hgb 8.8 L D
Hct 25.1 L
Plt Count 225
Sodium 134 L
Potassium 3.6
Chloride 109 H
Carbon Dioxide 18 L
BUN 10
Creatinine 0.4 L
Glucose 116 H
Calcium 8.3 L
Vital Signs:
Vital Signs
Temp Pulse Resp BP Pulse Ox
97.9 F 100 18 120/70 99
06/01/23 15:59 06/01/23 15:59 06/01/23 15:59 06/01/23 15:59 06/01/23 15:59
I&O
05/31/23 06/01/23 06/02/23
06:59 06:59 06:59
Intake Total 860 / 860
Balance 860 / 860
[2023-06-01] MEDS: CITROMA 300 ML PO (18:23)
[2023-06-01] MEDS: SEROQUEL 50 MG PO (21:20)
[2023-06-01] MEDS: NEURONTIN 300 MG PO (21:20)
[2023-06-01] MEDS: SENOKOT PO ×2 (21:20→22:00)
[2023-06-01 23:10] VITALS: BP 117/66
--- NOTE | 2023-06-02 06:50 | W.PN.HOSP.TC ---
Today's Communication/Plan
-
cont gabapentin
PT/OT
antibiotics advanced to meropenem
replete potassium
Assessment / Plan
Assessment / Plan
Physical Exam
General: No acute distress
CVS: S1-S2 normal
Chest: CTA B/L
Abdomen: Soft, NT / Bowel sounds present
Extremities: No edema, normal pulses
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
Proximal muscle weakness, upper extremity and lower extremity
Neuropathy patient states [id number]
68F Breast Ca Mets Sz Neuropathy amb dysfunction asthma IBS arthritis DVT/PE Eliquis Depression Anxiety Chronic Back pain
MRI of the brain-no new intraparenchymal brain metastasis. I do not think calvarial metastasis and metastatic dural enhancement in the inferior lateral right frontal region slightly decreased in comparison to MRI from . Decreased v
vasogenic edema in the right frontal lobe
Cervical spine MRI-diffuse osseous metastatic disease throughout the cervical spine and upper thoracic spine. No MRI evidence of pathological compression fracture or extraosseous metastatic soft tissue.
MRI T-spine appreciated
-extensive multifocal osseous metastatic disease no MRI evidence for acute path fx or extra osseous ext malignancy
-chronic vertebral endplate fractures T6, T10, T11, and L1
-moderate-sized central disc herniation C4/C5 causing mod spinal cord compression and central nicolette stenosis
-small to moderate disc herniation C5/C6 causing mild spinal cord compression and central canal stenosis
-small disc herniation T7/T8 mild spinal cord compression
-small to moderate sized left central disc herniation T8/T9
# Generalized weakness/deconditioning
Patient is in very poor shape in terms of hygiene, unkempt appearance poor oral hygiene
Global weakness and deconditioning likely secondary to neuropathy, malignancy and being on treatment
PT OT
Placement if possible
Head CT metastatic lesion again found
# UTI
Cx appreciated Klebsiella ESBL
switched from Ceftriaxone to Meroponem
ID eval appreciated
#Anemia-
Iron studies
Drop in Hb due to IVF
H&H stable at this time
# Diminished urine output-S/P 1 IVF
# Mild hyponatremia-SIADH
# History of right breast cancer-diagnosed in 2003 treated with radiation, lumpectomy and possibly tamoxifen.
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
Now has metastatic breast cancer with right-sided breast mass in the upper outer quadrant, mediastinal adenopathy, lung nodules, bone metastasis.� Breast biopsy invasive ductal carcinoma ER/TN positive and HER2 negative.
Patient was started on letrozole 2.5 mg daily and� Ibrance in December 2022
Started on Faslodex March 2023 because of progression on Ibrance plus letrozole.
Last PET scan 04/02/2023-interval worsening of disease.
follows with Dr. Renay Gonzalez
Oncology eval appreciated MRI brain C and T spine results do not explain patient's lower ext weakness and upper ext numbness.
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
# Chronic back pain
#Anxiety depression-Seroquel
# Malnutrition-type unclear
Continue dronabinol, Megace
# Neuropathy-likely secondary to malignancy/chemo/hormonal therapy
Continue gabapentin current 300 mg HS
will convert to TID starting 06/03
# Asthma-stable exam-continue Advair, albuterol inhalers as needed
# Gait dysfunction mostly wheelchair/chair bound.
Has been getting
She has pain and also proximal weakness
MRI T Spine pending
Metastasis cervical spine and brain
# Osteoarthritis
# Obesity
# IBS
# DVT prophylaxis-Eliquis
# CODE STATUS discussed with the patient in detail she wants to be a full code
05/31/23-Hospitalist discussed with patient's daughter on the phone in detail. Family states that she works all day and patient mostly sits in the chair. She could stand and get to commode or wheelchair in the past however she
has not been doing that for the past few days. She is been progressively getting worse. They were thinking about placing her.
I spent a total of 58 minutes with the patient or on the floor. More than 50% of this time involved counseling and coordination of care.
Anticipated Discharge: 24 - 48 hours
Subjective/Interval History
-
Date of Service: June 02, 2023
no acute distress. Continues to report neuropathic pain hands.
Objective Data
-
Labs:
Laboratory Results
06/02/23
06:00
WBC Pending
Hgb Pending
Hct Pending
Plt Count Pending
Sodium Pending
Potassium Pending
Chloride Pending
Carbon Dioxide Pending
BUN Pending
Creatinine Pending
Glucose Pending
Calcium Pending
Vital Signs:
Vital Signs
Temp Pulse Resp BP Pulse Ox
98.1 F 67 17 117/66 99
06/01/23 23:10 06/01/23 23:10 06/01/23 23:10 06/01/23 23:10 06/01/23 23:10
I&O
05/31/23 06/01/23 06/02/23
06:59 06:59 06:59
Intake Total 860 / 860 180 / 180
Balance 860 / 860 180 / 180
[2023-06-02 07:30] VITALS: BP 139/84
[2023-06-02] MEDS: ADVAIR HFA 115/21 MCG INHALER 2 PUFF INH ×2 (07:54→19:19)
[2023-06-02 08:13] LABS: Hematocrit 25.9 % (37.0-47.0); Hemoglobin 8.9 g/dL (12.0-16.0); Mean Corp Hgb Conc. 34.4 g/dL (33.0-37.0); Mean Corpuscular Hgb 31.3 pg (27.0-31.0); Mean Corpuscular Volume 91.2 fL (81.0-99.0); Mean Platelet Volume 9.4 fL (7.4-10.4); Platelet Count 259 10^3/uL (130-400); Red Blood Cell Count 2.84 10^6/uL (4.20-5.40); Red Cell Dist. Width 19.6 % (11.5-14.5); White Blood Cell Count 4.2 10^3/uL (4.8-10.8)
[2023-06-02 08:39] LABS: Blood Urea Nitrogen 7 mg/dl (7-17); Calcium 7.9 mg/dl (8.4-10.2); Carbon Dioxide 19 mmol/L (22-30); Chloride 112 mmol/L (98-107); Estimated Creatinine Clearance 95 ml/min; Glucose 99 mg/dl (70-99); Potassium 3.2 mmol/L (3.5-5.1); Sodium 134 mmol/L (135-145); eGFR > 60.00
[2023-06-02] MEDS: COLACE PO ×2 (09:40→21:15)
[2023-06-02] MEDS: KEPPRA 1000 MG PO ×2 (09:41→21:15)
[2023-06-02] MEDS: MIRALAX PO (09:41)
[2023-06-02] MEDS: ELIQUIS 2.5 MG PO ×2 (09:41→21:15)
[2023-06-02] MEDS: PROTONIX 40 MG PO (09:41)
[2023-06-02] MEDS: SODIUM BICARBONATE 650 MG PO (09:42)
[2023-06-02] MEDS: MEGACE ORAL SUSPENSION 800 MG PO (09:42)
[2023-06-02] MEDS: MARINOL 2.5 MG PO ×2 (09:42→18:08)
[2023-06-02] MEDS: MERREM 1000 MG IV ×2 (11:41→15:44)
[2023-06-02] MEDS: FLUSH (NSS) 1 FLUSH IV ×2 (11:41→15:45)
[2023-06-02] MEDS: STERILE WATER FOR INJECTION 20 ML IV ×2 (11:41→15:44)
[2023-06-02 14:54] VITALS: BP 133/77; PULSE 94
[2023-06-02 15:19] VITALS: BP 118/65
--- NOTE | 2023-06-02 15:44 | CON.ID ---
Consultation
-
Date/Time Consultation Requested: 06/02/23 9:45
Date/Time Consultation Performed: 06/02/23 15:44
Requesting Provider: Dr Reich
Performing Provider: Dr Marques
Reason for Consultation: UTI ESBL Klebsiella
Chief Complaint / Past History
Chief Complaint
weakness
History of Present Illness
Ms Pakrer is a 68 year old female with history of metastatic breast cancer (currently letrozole, ibrance, faslodex, see past medical history), she is wheelchair bound, found to have blood on the hair and is incontinent. Reports frequency and
urgency but no dysuria. Also feeling weak - unable to walk to the bathroom and was lowered to the floor.
Since arrival here she has been afebrile, bp stable, wbc onarrival 8.0 now 4.2, hgb 8.9, plt 259, L shift on arrival, cr 0.5, ua 30-40 wbc/hpf and >30 squamous cells - many bacteria, urine culture 100K ESBL Kleb only sensitive to carbapenem and
zosyn, she was started on meropenem today, previously on ceftriaxone x4 days.
Past History
Additional Past Medical History:
Breast cancer with lumpectomy, radiation and tamoxifen in 2003, Metastatic breast cancer now ER/SD positive and HER2 negative ,brain mets with vasogenic edema and seizures was on Keppra .� Completed brain radiation in November 2022.And started
Ibrance December� , neuropathy NOS with ambulatory dysfunction, asthma, IBS, arthritis, DVT and PE on Eliquis, with recurrence October 2022 while off of Eliquis.� Depression, anxiety chronic back pain on long-term disability
Additional Past Surgical History:
Lumpectomy for breast cancer, left and right hip surgery
Allergy History:
nickel Allergy (Verified 05/29/23 22:30)
Rash
pneumococcal vaccine Allergy (Verified 05/29/23 22:30)
afraid of, unk if allergic
Medications Reviewed: Yes
Social History
Tobacco: Non-Smoker
Alcohol: None
Drug: None
Family History
Family History: Not Pertinent
Review of Systems
Review of Systems
General: Negative Fever or Chills
All systems: All other systems were reviewed and were negative
Vital Signs
Temp Pulse Resp BP Pulse Ox
97.5 F 95 18 118/65 99
06/02/23 15:19 06/02/23 15:19 06/02/23 15:19 06/02/23 15:19 06/02/23 15:19
Physical Exam
Physical Exam
Constitutional: No Acute Distress
Head: Other (poor dentition)
Cardiovascular: Regular Rate and S1/S2; Negative Murmur or Rub
Pulmonary: Clear and Symmetric; Negative Wheezes, Rales or Rhonchi
Gastrointestinal: Soft, Non Tender, Non Distended and Normal Bowel Sounds
Genito-Urinary: Negative Suprapubic Tenderness
Skin: Warm and Dry; Negative Rash or Jaundice
Lab / Diagnostic Study Results
06/02/23 07:25
06/02/23 07:25
Abs Immat Gran (auto) 0.0 10^3/uL (0-0.05) 05/30/23 00:08
Absolute Neuts (auto) 6.8 10^3/uL (1.4-6.5) H 05/30/23 00:08
Absolute Lymphs (auto) 0.7 10^3/uL (1.2-3.4) L 05/30/23 00:08
Absolute Monos (auto) 0.4 10^3/uL (0.1-0.6) 05/30/23 00:08
Absolute Basos (auto) 0.1 10^3/uL (0-0.2) 05/30/23 00:08
Immature Gran % 0.4 % (0-0.5) 05/30/23 00:08
Neutrophils % 84.9 % (42.2-75.2) H 05/30/23 00:08
Lymphocytes % 8.4 % (20.5-51.1) L 05/30/23 00:08
Monocytes % 5.1 % (1.7-9.3) 05/30/23 00:08
Eosinophils % 0.6 % (0-6) 05/30/23 00:08
Basophils % 0.6 % (0-2) 05/30/23 00:08
Ur Squamous Epith Cells >30 /LPF (Few) 05/30/23 03:13
Microbiology Results
Micro:
05/30/23 03:13 Urine Culture - Final
Urine Klebsiella pneumoniae-ESBL
05/30/23 00:08 Influenza Types A & B ([place]) - Final
Nasal Swab Negative for Influenza A & B, NAAT
Negative results must be combined with clinical observations
and patient history.
Nucleic Acid Amplification test (NAAT)performed on the
[employer] platform.
Assessment / Plan
ESBL Klebsiella UTI
Ambulatory Dysfunction
Metastatic R Breast Cancer
- no leukocytosis, fevers or hypotension
- agree with meropenem - plan 3 day course - last dose / at 10AM
- if it will help with placement could place midline - alternatively complete the antibiotics here
- probiotics while on broad spectrum rx
[2023-06-02] MEDS: VISBIOME 2 CAP PO (16:04)
--- NOTE | 2023-06-02 16:28 | PTCARENOTE ---
Pt transferred to room 2131 via bed, all belongings with pt. Report called to Rosario HUDSON. Pt condition stable at time of transfer, no c/o; all belongings sent with pt.
--- NOTE | 2023-06-02 16:34 | W.PN.ONC2 ---
Today's Communication / Plan
-
Cancer treatment on hold for disease progression, toxicity.
I have not seen two doses of Faslodex cause lower extremity weakness and upper extremity numbness. MRI unrevealing and no suggestion of leptomeningeal disease. May be deconditioning.
I think her best chance of being able to proceed for additional treatment is to go to rehab +/- short-term placement. Not sure what is going on at home, has a lot of hygeine issues, I think they are not able to manage her.
Impression
Impression
Metastatic breast cancer s/p lumpectomy/XRT (2003) with mets to brain (XRT 11/2022), bone and lung (Ibrance 12/2022)
Palliative hormonal therapy (Letrozole and Ibrance discontinued, Faslodex on hold as of 05/22/23)
Profound weakness
Failure to thrive
Dry heaving, poor PO intake
Traumatic falls, ambulatory dysfunction
Acute urinary tract infection
Anxiety
Plan
Plan
Discussed MRI brain and MRI C- and T-spines, no explanation for her upper extremity numbness.
She states the numbness started when she started Faslodex started 04/24, second treatment 05/08, third treatment on hold due to multiple complaints.
Unclear whether she will require placement, really does not want it, states motivated to get stronger. I discussed with her that it may not be possible for her to get strong enough to safely return home.
Psychosocial situation interfering with care in that she is not able to take care of herself, daughter has to lift her, has had some falls.
Subjective/Objective
Chief Complaint
Metastatic breast cancer, failure to thrive
Subjective
Denies new complaint. Still with leg weakness and arm numbness since Faslodex.
Vital Signs:
Vital Signs
Temp Pulse Resp BP Pulse Ox
97.5 F 95 18 118/65 99
06/02/23 15:19 06/02/23 15:19 06/02/23 15:19 06/02/23 15:19 06/02/23 15:19
Lab Results:
Laboratory Data
WBC 4.2 10^3/uL (4.8-10.8) L 06/02/23 07:25
Hgb 8.9 g/dL (12.0-16.0) L 06/02/23 07:25
Plt Count 259 10^3/uL (130-400) 06/02/23 07:25
eGFR > 60.00 06/02/23 07:25
Physical Exam
Awake, alert, non-toxic
Poor dentition
Lungs clear
Heart regular
Abd soft, non-tender
Extrem no edema
Tangential thought process
[2023-06-02 16:46] VITALS: BP 130/63
[2023-06-02] MEDS: KCL 40 MEQ PO (17:26)
--- NOTE | 2023-06-02 18:17 | PTCARENOTE ---
pt transfered form [address], pulled form stretcher to bed, oriented to her new room, [facility], vitals signs WNL, call alfaro within reach. Offers no complain.
[2023-06-02] MEDS: NEURONTIN 300 MG PO (21:14)
[2023-06-02] MEDS: SEROQUEL 50 MG PO (21:14)
[2023-06-02] MEDS: SENOKOT PO (21:15)
[2023-06-02 23:31] VITALS: BP 140/72
[2023-06-03] MEDS: MERREM 1000 MG IV ×3 (00:21→17:22)
[2023-06-03] MEDS: STERILE WATER FOR INJECTION 20 ML IV ×3 (00:22→17:22)
[2023-06-03 06:26] LABS: Hematocrit 27.3 % (37.0-47.0); Hemoglobin 9.3 g/dL (12.0-16.0); Mean Corp Hgb Conc. 34.1 g/dL (33.0-37.0); Mean Corpuscular Hgb 31.2 pg (27.0-31.0); Mean Corpuscular Volume 91.6 fL (81.0-99.0); Mean Platelet Volume 9.5 fL (7.4-10.4); Platelet Count 272 10^3/uL (130-400); Red Blood Cell Count 2.98 10^6/uL (4.20-5.40); Red Cell Dist. Width 19.2 % (11.5-14.5); White Blood Cell Count 3.5 10^3/uL (4.8-10.8)
[2023-06-03 06:47] LABS: Blood Urea Nitrogen 8 mg/dl (7-17); Calcium 8.4 mg/dl (8.4-10.2); Carbon Dioxide 20 mmol/L (22-30); Chloride 108 mmol/L (98-107); Estimated Creatinine Clearance 95 ml/min; Glucose 105 mg/dl (70-99); Magnesium 1.9 mg/dl (1.6-2.3); Potassium 3.8 mmol/L (3.5-5.1); Sodium 136 mmol/L (135-145); eGFR > 60.00
[2023-06-03] MEDS: ADVAIR HFA 115/21 MCG INHALER 2 PUFF INH ×2 (07:48→20:00)
--- NOTE | 2023-06-03 07:53 | W.PN.HOSP.TC ---
Today's Communication/Plan
-
increased Gabapentin as per Neuro
Neurosx eval in AM possible benefit cervical laminectomy
cont meropenem abx as per ID
PT/OT
Assessment / Plan
Assessment / Plan
Physical Exam
General: No acute distress
CVS: S1-S2 normal
Chest: CTA B/L
Abdomen: Soft, NT / Bowel sounds present
Extremities: No edema, normal pulses
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
Proximal muscle weakness, upper extremity and lower extremity
Neuropathy patient states [id number]
68F Breast Ca Mets Sz Neuropathy amb dysfunction asthma IBS arthritis DVT/PE Eliquis Depression Anxiety Chronic Back pain
MRI of the brain-no new intraparenchymal brain metastasis. Metastasis appears improved from prior imaging. Decreased v vasogenic edema in the right frontal lobe
Cervical spine MRI-diffuse osseous metastatic disease throughout the cervical spine and upper thoracic spine. No MRI evidence of pathological compression fracture or extraosseous metastatic soft tissue.
MRI T-spine appreciated
-extensive multifocal osseous metastatic disease no MRI evidence for acute path fx or extra osseous ext malignancy
-chronic vertebral endplate fractures T6, T10, T11, and L1
-moderate-sized central disc herniation C4/C5 causing mod spinal cord compression and central nicolette stenosis
-small to moderate disc herniation C5/C6 causing mild spinal cord compression and central canal stenosis
-small disc herniation T7/T8 mild spinal cord compression
-small to moderate sized left central disc herniation T8/T9
# Generalized weakness/deconditioning
#upper ext numbness neuropathic pain, lower ext weakness
Patient is in very poor shape in terms of hygiene, unkempt appearance poor oral hygiene
Global weakness and deconditioning likely secondary to neuropathy, malignancy and being on treatment
PT OT appreciated SNF rehab
Head CT metastatic lesion again found though appear improved from prior imaging
Neuro eval appreciated subacute onset b/l hand weakness likely d/t cervical myelopathy possible benefit cervical laminectomy, Gabapentin increased to 300 mg TID from 300 mg HS
# UTI
Cx appreciated Klebsiella ESBL
switched from Ceftriaxone to Meroponem
ID eval appreciated 3 day course planned last day of meropenem 06/04 10AM
#Anemia-
Iron studies
Drop in Hb due to IVF
H&H stable at this time
# Diminished urine output-S/P 1 IVF
# Mild hyponatremia-SIADH
# History of right breast cancer-diagnosed in 2003 treated with radiation, lumpectomy and possibly tamoxifen.
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
Now has metastatic breast cancer with right-sided breast mass in the upper outer quadrant, mediastinal adenopathy, lung nodules, bone metastasis.� Breast biopsy invasive ductal carcinoma ER/NM positive and HER2 negative.
Patient was started on letrozole 2.5 mg daily and� Ibrance in December 2022
Started on Faslodex March 2023 because of progression on Ibrance plus letrozole.
Last PET scan 04/02/2023-interval worsening of disease.
follows with Dr. Renay Gonzalez
Oncology eval appreciated
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
# Chronic back pain
#Anxiety depression-Seroquel
# Malnutrition-type unclear
Continue dronabinol, Megace
# Neuropathy-likely secondary to malignancy/chemo/hormonal therapy
Continue gabapentin started on 300 mg HS
increased to 300 mg TID as per neuro above
# Asthma-stable exam-continue Advair, albuterol inhalers as needed
# Gait dysfunction mostly wheelchair/chair bound.
Has been getting
She has pain and also proximal weakness
MRI T Spine appreciated as above
Metastasis cervical spine and brain
# Osteoarthritis
# Obesity
# IBS
# DVT prophylaxis-Eliquis
# CODE STATUS Full Code
Discussed with patient and her daughter Merlene
05/31/23-Hospitalist discussed with patient's daughter on the phone in detail. Family states that she works all day and patient mostly sits in the chair. She could stand and get to commode or wheelchair in the past however she
has not been doing that for the past few days. She is been progressively getting worse. They were thinking about placing her.
I spent a total of 54 minutes with the patient or on the floor. More than 50% of this time involved counseling and coordination of care.
Anticipated Discharge: 24 - 48 hours
Subjective/Interval History
-
Date of Service: June 03, 2023
No acute distress. Appears comfortable at this time. No new acute issues at this time. Continues to report neuropathic pain numbness upper ext's (though pain has improved with increased gabapentin as per neuro). Daughter Merlene present during
evaluation.
Objective Data
-
Labs:
Laboratory Results
06/03/23
05:14
WBC 3.5 L
Hgb 9.3 L
Hct 27.3 L
Plt Count 272
Sodium 136
Potassium 3.8
Chloride 108 H
Carbon Dioxide 20 L
BUN 8
Creatinine 0.4 L
Glucose 105 H
Calcium 8.4
Vital Signs:
Vital Signs
Temp Pulse Resp BP Pulse Ox
98.2 F 74 18 140/72 98
06/02/23 23:31 06/03/23 07:52 06/03/23 07:52 06/02/23 23:31 06/03/23 07:52
I&O
06/02/23 06/03/23 06/04/23
06:59 06:59 06:59
Intake Total 420 / 420 880 / 880
Output Total 100 / 100
Balance 420 / 420 780 / 780
[2023-06-03 08:26] VITALS: BP 142/88
--- NOTE | 2023-06-03 09:35 | CON.NEURO ---
Consultation
Order
Date of Consultation: 06/03/23
Requesting Provider:
Reason for Consult:
Subjective/Objective
Subjective Data
Date of Service: June 03, 2023
Objective Data
Vital Signs
Temp Pulse Resp BP Pulse Ox
36.7 C 87 20 142/88 98
06/03/23 08:26 06/03/23 08:26 06/03/23 08:26 06/03/23 08:26 06/03/23 08:26
Lab Results
06/03/23 05:14
06/03/23 05:14
Sodium 136 mmol/L (135-145) 06/03/23 05:14
Potassium 3.8 mmol/L (3.5-5.1) 06/03/23 05:14
BUN 8 mg/dl (7-17) 06/03/23 05:14
Glucose 105 mg/dl (70-99) H 06/03/23 05:14
Calcium 8.4 mg/dl (8.4-10.2) 06/03/23 05:14
Phosphorus 4.0 mg/dl (2.5-4.5) 06/03/23 05:14
Vitamin B12 459 pg/ml (239-931) 06/01/23 06:45
Patient Allergies
nickel Allergy (Verified 05/29/23 22:30)
Rash
pneumococcal vaccine Allergy (Verified 05/29/23 22:30)
afraid of, unk if allergic
Medications
-
Active Medications
Generic Name Dose Route Start Last Admin
Trade Name Freq PRN Reason Stop Dose Admin
Albuterol 2 puff 05/30/23 13:04
Albuterol Hfa [90 Mcg/Dose] Inhaler INH 06/27/23 13:03
R Q4HPRN PRN
sob
Protocol
Apixaban 2.5 mg 05/30/23 20:00 06/02/23 21:15
Apixaban (Eliquis) 2.5 Mg Tablet PO 06/27/23 19:59 2.5 mg
BID ANTONIO Administration
Docusate Sodium 100 mg 05/31/23 20:00 06/02/23 21:15
Docusate Sodium 100 Mg Capsule PO 06/28/23 19:59 Not Given
BID ANTONIO
Dronabinol 2.5 mg 05/30/23 17:00 06/02/23 18:08
Dronabinol 2.5 Mg Capsule PO 06/27/23 16:59 2.5 mg
BID@0800,1700 ANTONIO Administration
Gabapentin 100 mg 06/03/23 08:00
Gabapentin 100 Mg Capsule PO 07/01/23 07:59
TID ANTONIO
Lactobacillus/Bifidobacterium 2 cap 06/02/23 16:00 06/02/23 16:04
Lactobac/Bifidobac (Visbiome) PO 06/30/23 15:59 2 cap
DAILY ANTONIO Administration
Levetiracetam 1,000 mg 05/30/23 20:00 06/02/23 21:15
Levetiracetam 500 Mg Regular Release Tablet PO 06/27/23 19:59 1,000 mg
Q12 ANTONIO Administration
Megestrol Acetate 800 mg 05/30/23 13:00 06/02/23 09:42
Megestrol Oral Suspension (400 Mg/10 Ml) Cup PO 06/27/23 12:59 800 mg
DAILY ANTONIO Administration
Meropenem 1,000 mg 06/02/23 09:45 06/03/23 00:21
Meropenem 1,000 Mg/20 Ml Vial IV 06/05/23 09:44 1,000 mg
Q8 ANTONIO Administration
Ondansetron HCl 4 mg 05/30/23 13:04
Ondansetron 4 Mg (Orally-Disintegrating) Tablet PO 06/27/23 13:03
Q8HPRN PRN
nausea and vomiting
Pantoprazole Sodium 40 mg 05/30/23 14:00 06/02/23 09:41
Pantoprazole 40 Mg Delayed Release Tablet PO 06/27/23 13:59 40 mg
DAILY ANTONIO Administration
Polyethylene Glycol 17 grams 05/31/23 14:00 06/02/23 09:41
Polyethylene Glycol Powder 17 Grams Packet PO 06/28/23 13:59 Not Given
DAILY ANTONIO
Quetiapine Fumarate 50 mg 05/30/23 22:00 06/02/23 21:14
Quetiapine 25 Mg Tablet PO 06/27/23 21:59 50 mg
HS ANTONIO Administration
Fluticasone/Salmeterol 2 puff 05/30/23 20:00 06/03/23 07:48
Advair Hfa 115/21 Inhaler INH 06/27/23 19:59 2 puff
R BID ANTONIO Administration
Sennosides 17.2 mg 05/31/23 22:00 06/02/23 21:15
Sennosides (Senokot) 8.6 Mg Tablet PO 06/28/23 21:59 Not Given
HS ANTONIO
Sodium Chloride 0 flush 05/31/23 14:00 06/02/23 15:45
Sodium Chloride 0.9% (Flush) Syringe IV 06/28/23 13:59 1 flush
PER PROTOCOL ANTONIO Administration
Sterile Water 20 ml 06/02/23 10:00 06/03/23 00:22
Sterile Water For Injection 20 Ml Vial IV 06/30/23 09:59 20 ml
Q8 ANTONIO Administration
Home Medications
Medication Instructions Recorded
apixaban 2.5 mg tablet (Eliquis) 2.5 mg PO BID Blood Clot 04/08/23
Prevention/Tx
fluticasone 250 mcg-salmeterol 50 1 inh inhalation R BID 04/08/23
mcg/dose blistr powdr for Lung/Breathing Issues
inhalation (Advair Diskus)
megestrol 400 mg/10 mL (40 mg/mL) 800 mg PO DAILY appetite 04/08/23
oral suspension stimuant/hormonal agent
pantoprazole 40 mg tablet,delayed 40 mg PO DAILY Gastrointestinal 04/08/23
release (Protonix) Issue
quetiapine 50 mg tablet (Seroquel) 50 mg PO HS Mental Health/Anxiety 04/08/23
dronabinol 2.5 mg capsule 2.5 mg PO BID #60 caps 04/09/23
ondansetron 4 mg disintegrating 4 mg PO Q8HPRN PRN nausea and 04/09/23
tablet vomiting #30 tabs
albuterol sulfate 90 mcg/actuation 2 puff inhalation R Q4HPRN PRN sob 05/30/23
aerosol inhaler
cefdinir 300 mg capsule 300 mg PO BID #14 caps 05/30/23
gabapentin 100 mg capsule 300 mg PO HS Neurological Condition 05/30/23
levetiracetam 1,000 mg tablet 1,000 mg PO Q12H Seizures 05/30/23
Past History
Past History
ED Past Medical History: Asthma, Cancer (Breast with Lumpectomy and radiation 2003), Other (DVT, PE, IBS) and Other (Anxiety)
ED Past Surgical History: Orthopedic (bilateral hip replacements L 2020, R 2021)
Social History
Tobacco: Non-smoker
Alcohol: None
Drug: None
Personal:
Living: with family
Employment: Not employed
Family History
Family History: Other (Reviewed and noncontributory)
--- NOTE | 2023-06-03 09:51 | CON.NEURO4 ---
Addendum entered and electronically signed by Josseu Flores MD 06/03/23 14:25:
Studies reviewed.
I have personally examined the patient. I reviewed and agree with the SCHOOL CUSTODIAN's Note.
My addenda:
Awake, alert, interactive. No acute distress.
Speech intact.
Follows 2-step requests w/o difficulty. No tremor.
Extra-ocular movements grossly intact.
Facial movements full and symmetric. Hearing intact to normal conversational volume.
Normal UE movements bilaterally. Bilateral hand weakness is symmetric with mild proximal leg weakness, no distal leg weakness
Neck: full ROM.
Chest: no dyspnea
Heart: no JVD
Ext: (-) Clubbing, (-) Cyanosis, (-) Edema
IMPRESSIONS/RECOMMENDATIONS:
Subacute onset of bilateral hand weakness
This likely etiology is cervical myelopathy especially suggested by changes seen on MRI of the cervical spine
If appropriate, consult spine surgery for cervical laminectomy. This may not be appropriate based on the patient's limited prognosis due to cancer with metastasis
May check as outpatient EMG study to better define if symptoms are secondary to spinal dysfunction
Continue levetiracetam to the patient's prior suggested seizure risk
Increase gabapentin from newly prescribed 100 mg 3 times a day to dosage of 300 mg 3 times a day due to the patient's discomfort
Continue rehabilitation therapies
Will continue to follow as needed.
Original Note:
Consultation - Neurology 4
-
CONSULTING PHYSICIAN: Jossue Flores MD
REFERRING PHYSICIAN: Hospitalists/Dr. Reich
DICTATED BY: ROBYN Tabares
DATE/TIME OF REQUEST: 06/03/23
DATE/TIME OF CONSULTATION: 06/03/23
Reason for Consultation: Bilateral hand numbness/weakness
History of Present Illness:
This is a 68-year-old right-handed female who has presented to the hospital on 05/29/23 with report of generalized weakness and a fall at home. Urine culture is positive for ESBL. Patient is known to our Neurology service from an encounter in the
past for breast cancer with brain and osseous metastases complicated by vasogenic edema and seizures. Neurology is consulted due to concern of bilateral hand weakness and numbness and bilateral lower extremity weakness. Patient reports that starting
about one month ago she has had weakness, discomfort, and difficulty using both hands. She also reports that she has had bilateral leg weakness for several months as well. She has had no appetite and food has been tasting poorly so she has not had
much oral intake. She denies any headache, dizziness, vision changes, speech/swallow difficulty, nausea, chest pain, palpitations, and shortness of breath.
Past Medical History: Breast cancer with mets to the brain and osseous, DVT/PE (Eliquis), IBS, asthma, insomnia, depression
Surgical History: Right breast lumpectomy, L and R hip arthroplasty
Family History: Reviewed and noncontributory.
Social History: Denies tobacco, alcohol, and illicit drug use.
Allergies: Nickel, pneumococcal vaccine.
Home Medications: See below.
Review of Symptoms:
Patient denies any fever, headache, chest pain, shortness of breath, or symptoms. Reports bowel incontinence.
�Per the HPI.�All systems are reviewed negative except above.
Physical Exam:
The patient is afebrile, abdomen is nondistended, breathing is unlabored, skin is warm and dry, no edema.
Neurologic Examination:
The patient is awake, alert and oriented x 3. She is able to follow commands and answer questions appropriately. There is no aphasia or dysarthria. On cranial nerve assessment, pupils are 3 mm bilateral, round and reactive to light and
accommodation. Visual gresham are full. Extraocular movements are intact. Beating nystagmus with extreme right gaze. Facial sensations are intact and bilaterally symmetrical, there is no facial asymmetry. Hearing is intact bilaterally to normal
conversation volume. Tongue palate and uvula are midline. Sternocleidomastoid strengths are full bilaterally. Motor strengths are 4/5 bilateral upper and lower extremities on medical research [place] scale. Bilateral finger spread 4-/5. Bilateral
plantar/dorsiflexion 4/5. There is drift in bilateral lower extremities. No involuntary movement noted. Deep tendon reflexes are 2+ bilateral upper and lower extremities and Babinski is absent bilaterally. Sensations of temperature is absent
distally. Vibration is intact and bilaterally symmetrical. Coordination is intact by finger to nose bilaterally. Bulk bilateral hand loss.
Lab Results: See below.
Neuro Imaging:
1. MRI Brain 06/01/23: No new intraparenchymal brain metastases. Redemonstration of calvarial metastases and metastatic dural enhancement in the inferior lateral right frontal region, slightly decreased in size compared to the brain MRI from
11/23/2022. Decreased vasogenic edema in the right frontal lobe.
2. MRI Thoracic Spine 06/02/23: EXTENSIVE MULTIFOCAL OSSEOUS METASTATIC DISEASE in the thoracic and cervical spine. No MRI evidence for acute pathologic fracture or extra osseous extension of malignancy. Chronic vertebral body endplate fractures of
T6, T10, T11, and L1 with mild loss of vertebral body height. Moderate-sized central disc herniation at C4/C5 causing moderate spinal cord compression and central canal stenosis. Small to moderate-sized central disc herniation at C5/C6 causing mild
spinal cord compression and central canal stenosis. Small disc herniation at T7/T8 causing mild spinal cord compression. Small to moderate-sized left central disc herniation at T8/T9. Mild diffuse spinal cord atrophy.
3. MRI Cervical Spine 06/01/23: Diffuse osseous metastatic disease throughout the cervical spine and upper thoracic spine. No MRI evidence for a pathologic compression fracture or extraosseous metastatic soft tissue.
Differentials for the patient's presentation include:
1. Extensive multifocal metastatic osseous disease in the cervical and thoracic spine likely producing patient's weakness and sensory changes.
Patient has the following risk factors for their symptoms: Metastatic breast cancer with brain and spine mets.
Recommendations:
-Increase gabapentin to 300mg TID.
-Neurosurgery evaluation for spine metastases.
-Neurological checks per unit guidelines.
-Continue Keppra 1000mg BID
-DVT prophylaxis
Discussed patient care with: Dr. Flores, the patient
Vital Signs and Labs
-
Vital Signs and Labs:
Vital Signs
Temp Pulse Resp BP Pulse Ox
98.0 F 87 20 142/88 98
06/03/23 08:26 06/03/23 08:26 06/03/23 08:26 06/03/23 08:26 06/03/23 08:26
Lab Results
06/03/23 05:14
06/03/23 05:14
Sodium 136 mmol/L (135-145) 06/03/23 05:14
Potassium 3.8 mmol/L (3.5-5.1) 06/03/23 05:14
BUN 8 mg/dl (7-17) 06/03/23 05:14
Glucose 105 mg/dl (70-99) H 06/03/23 05:14
Calcium 8.4 mg/dl (8.4-10.2) 06/03/23 05:14
Phosphorus 4.0 mg/dl (2.5-4.5) 06/03/23 05:14
Vitamin B12 459 pg/ml (536-931) 06/01/23 06:45
Medications
-
Active Medications
Generic Name Dose Route Start Last Admin
Trade Name Freq PRN Reason Stop Dose Admin
Albuterol 2 puff 05/30/23 13:04
Albuterol Hfa [90 Mcg/Dose] Inhaler INH 06/27/23 13:03
R Q4HPRN PRN
sob
Protocol
Apixaban 2.5 mg 05/30/23 20:00 06/02/23 21:15
Apixaban (Eliquis) 2.5 Mg Tablet PO 06/27/23 19:59 2.5 mg
BID ANTONIO Administration
Docusate Sodium 100 mg 05/31/23 20:00 06/02/23 21:15
Docusate Sodium 100 Mg Capsule PO 06/28/23 19:59 Not Given
BID ANTONIO
Dronabinol 2.5 mg 05/30/23 17:00 06/02/23 18:08
Dronabinol 2.5 Mg Capsule PO 06/27/23 16:59 2.5 mg
BID@0800,1700 ANTONIO Administration
Gabapentin 300 mg 06/03/23 09:52
Gabapentin 300 Mg Capsule PO 07/01/23 09:51
TID ANTONIO
Lactobacillus/Bifidobacterium 2 cap 06/02/23 16:00 06/02/23 16:04
Lactobac/Bifidobac (Visbiome) PO 06/30/23 15:59 2 cap
DAILY ANTONIO Administration
Levetiracetam 1,000 mg 05/30/23 20:00 06/02/23 21:15
Levetiracetam 500 Mg Regular Release Tablet PO 06/27/23 19:59 1,000 mg
Q12 ANTONIO Administration
Megestrol Acetate 800 mg 05/30/23 13:00 06/02/23 09:42
Megestrol Oral Suspension (400 Mg/10 Ml) Cup PO 06/27/23 12:59 800 mg
DAILY ANTONIO Administration
Meropenem 1,000 mg 06/02/23 09:45 06/03/23 00:21
Meropenem 1,000 Mg/20 Ml Vial IV 06/05/23 09:44 1,000 mg
Q8 ANTONIO Administration
Ondansetron HCl 4 mg 05/30/23 13:04
Ondansetron 4 Mg (Orally-Disintegrating) Tablet PO 06/27/23 13:03
Q8HPRN PRN
nausea and vomiting
Pantoprazole Sodium 40 mg 05/30/23 14:00 06/02/23 09:41
Pantoprazole 40 Mg Delayed Release Tablet PO 06/27/23 13:59 40 mg
DAILY ANTONIO Administration
Polyethylene Glycol 17 grams 05/31/23 14:00 06/02/23 09:41
Polyethylene Glycol Powder 17 Grams Packet PO 06/28/23 13:59 Not Given
DAILY ANTONIO
Quetiapine Fumarate 50 mg 05/30/23 22:00 06/02/23 21:14
Quetiapine 25 Mg Tablet PO 06/27/23 21:59 50 mg
HS ANTONIO Administration
Fluticasone/Salmeterol 2 puff 05/30/23 20:00 06/03/23 07:48
Advair Hfa 115/21 Inhaler INH 06/27/23 19:59 2 puff
R BID ANTONIO Administration
Sennosides 17.2 mg 05/31/23 22:00 06/02/23 21:15
Sennosides (Senokot) 8.6 Mg Tablet PO 06/28/23 21:59 Not Given
HS ANTONIO
Sodium Chloride 0 flush 05/31/23 14:00 06/02/23 15:45
Sodium Chloride 0.9% (Flush) Syringe IV 06/28/23 13:59 1 flush
PER PROTOCOL ANTONIO Administration
Sterile Water 20 ml 06/02/23 10:00 06/03/23 00:22
Sterile Water For Injection 20 Ml Vial IV 06/30/23 09:59 20 ml
Q8 ANTONIO Administration
Home Medications
Medication Instructions Recorded
apixaban 2.5 mg tablet (Eliquis) 2.5 mg PO BID Blood Clot 04/08/23
Prevention/Tx
fluticasone 250 mcg-salmeterol 50 1 inh inhalation R BID 04/08/23
mcg/dose blistr powdr for Lung/Breathing Issues
inhalation (Advair Diskus)
megestrol 400 mg/10 mL (40 mg/mL) 800 mg PO DAILY appetite 04/08/23
oral suspension stimuant/hormonal agent
pantoprazole 40 mg tablet,delayed 40 mg PO DAILY Gastrointestinal 04/08/23
release (Protonix) Issue
quetiapine 50 mg tablet (Seroquel) 50 mg PO HS Mental Health/Anxiety 04/08/23
dronabinol 2.5 mg capsule 2.5 mg PO BID #60 caps 04/09/23
ondansetron 4 mg disintegrating 4 mg PO Q8HPRN PRN nausea and 04/09/23
tablet vomiting #30 tabs
albuterol sulfate 90 mcg/actuation 2 puff inhalation R Q4HPRN PRN sob 05/30/23
aerosol inhaler
cefdinir 300 mg capsule 300 mg PO BID #14 caps 05/30/23
gabapentin 100 mg capsule 300 mg PO HS Neurological Condition 05/30/23
levetiracetam 1,000 mg tablet 1,000 mg PO Q12H Seizures 05/30/23
[2023-06-03] MEDS: VISBIOME 2 CAP PO (10:11)
[2023-06-03] MEDS: MEGACE ORAL SUSPENSION 800 MG PO (10:11)
[2023-06-03] MEDS: PROTONIX 40 MG PO (10:12)
[2023-06-03] MEDS: KEPPRA 1000 MG PO ×2 (10:13→20:41)
[2023-06-03] MEDS: ELIQUIS 2.5 MG PO ×2 (10:14→20:41)
[2023-06-03] MEDS: MARINOL 2.5 MG PO ×2 (10:14→17:22)
[2023-06-03] MEDS: COLACE PO ×3 (10:14→20:45)
[2023-06-03] MEDS: NEURONTIN 300 MG PO ×3 (10:16→22:49)
[2023-06-03] MEDS: MIRALAX PO (10:17)
--- NOTE | 2023-06-03 10:42 | W.PN.ID1 ---
Date of Service
Date of Service: June 03, 2023
Today's Communication
- agree with meropenem - plan 3 day course - last dose 3/7 at 10AM
- if it will help with placement could place midline - alternatively complete the antibiotics here
Assessment / Plan
ESBL Klebsiella UTI
Ambulatory Dysfunction
Metastatic R Breast Cancer
- no leukocytosis, fevers or hypotension
- bladder scan/straight caths
- agree with treating constipation
- agree with meropenem - plan 3 day course - last dose 3/7 at 10AM
- if it will help with placement could place midline - alternatively complete the antibiotics here
- probiotics while on broad spectrum rx
Chief Complaint
-: UTI
Subjective / Review of Systems
afebrile
bp stable
minimal leukopenia
cr stable
Vital Signs / Physical Exam
Vital Signs
Vital Signs
Temp Pulse Resp BP Pulse Ox
98.0 F 87 20 142/88 98
06/03/23 08:26 06/03/23 08:26 06/03/23 08:26 06/03/23 08:26 06/03/23 08:26
Physical Exam
Constitutional: No Acute Distress
Cardiovascular: Regular Rate and S1/S2; Negative Murmur or Rub
Pulmonary: Clear and Symmetric; Negative Wheezes or Rales
Gastrointestinal: Soft, Non Tender, Non Distended and Normal Bowel Sounds
Skin: Warm and Dry; Negative Rash or Jaundice
Objective Data
Lab Data
Lab Results
06/03/23 05:14
06/03/23 05:14
Estimated Creat Clear 95 ml/min 06/03/23 05:14
Total Bilirubin 0.9 mg/dl (0.2-1.3) 05/30/23 00:08
AST 22 U/L (14-36) 05/30/23 00:08
ALT 11 U/L (0-35) 05/30/23 00:08
Alkaline Phosphatase 227 U/L (38-126) H 05/30/23 00:08
Most recent labs reviewed.
Micro Results:
05/30/23 03:13 Urine Culture - Final
Urine Klebsiella pneumoniae-ESBL
05/30/23 00:08 Influenza Types A & B ([place]) - Final
Nasal Swab Negative for Influenza A & B, NAAT
Negative results must be combined with clinical observations
and patient history.
Nucleic Acid Amplification test (NAAT)performed on the
[employer] platform.
--- NOTE | 2023-06-03 15:30 | CM ---
Reviewed the chart notes and spoke with the patient at the bedside. IMM signed and placed on chart. Per ID note, plans is meropenem for 3 day course, last dose will be on 06/04. PT recommending SNF/rehab prior to transitioning home. Referrals
sent via [facility]. CM continues to be available to patient/family and is monitoring medical plan for needs at discharge.
Plan: Discharge to SNF/rehab when medically stable.
[2023-06-03 16:00] VITALS: BP 125/76
[2023-06-03] MEDS: SEROQUEL 50 MG PO (22:49)
[2023-06-03] MEDS: SENOKOT PO (22:49)
[2023-06-03 23:24] VITALS: BP 142/68
[2023-06-04] MEDS: STERILE WATER FOR INJECTION 20 ML IV ×3 (00:21→15:36)
[2023-06-04] MEDS: MERREM 1000 MG IV ×3 (00:21→15:36)
[2023-06-04 05:39] LABS: Hematocrit 28.3 % (37.0-47.0); Hemoglobin 9.6 g/dL (12.0-16.0); Mean Corp Hgb Conc. 33.9 g/dL (33.0-37.0); Mean Corpuscular Hgb 31.3 pg (27.0-31.0); Mean Corpuscular Volume 92.2 fL (81.0-99.0); Mean Platelet Volume 9.9 fL (7.4-10.4); Platelet Count 286 10^3/uL (130-400); Red Blood Cell Count 3.07 10^6/uL (4.20-5.40); Red Cell Dist. Width 19.3 % (11.5-14.5); White Blood Cell Count 3.6 10^3/uL (4.8-10.8)
[2023-06-04 05:53] LABS: Blood Urea Nitrogen 10 mg/dl (7-17); Calcium 8.2 mg/dl (8.4-10.2); Carbon Dioxide 21 mmol/L (22-30); Chloride 109 mmol/L (98-107); Estimated Creatinine Clearance 95 ml/min; Glucose 111 mg/dl (70-99); Potassium 3.8 mmol/L (3.5-5.1); Sodium 135 mmol/L (135-145); eGFR > 60.00
--- NOTE | 2023-06-04 07:04 | W.PN.ONC2 ---
Today's Communication / Plan
-
Cancer treatment on hold for disease progression, toxicity.
Prob needs SNF placement short-term.
Unusual for Faslodex (just 2 doses as well) to cause lower extremity weakness and upper extremity numbness. MRI unrevealing and no suggestion of leptomeningeal disease.
Appreciate IM, ID, Neuro assistance.
Impression
Impression
Metastatic breast cancer s/p lumpectomy/XRT (2003) with mets to brain (XRT 11/2022), bone and lung (Ibrance 12/2022)
Palliative hormonal therapy (Letrozole and Ibrance discontinued, Faslodex on hold as of 05/22/23)
Profound weakness
Failure to thrive
Dry heaving, poor PO intake
Traumatic falls, ambulatory dysfunction
Acute urinary tract infection
Anxiety
Plan
Plan
Discussed MRI brain and MRI C- and T-spines, no explanation for her upper extremity numbness.
She states the numbness started when she started Faslodex started 04/24, second treatment 05/08, third treatment on hold due to multiple complaints.
Unclear whether she will require placement, really does not want it, states motivated to get stronger. I discussed with her that it may not be possible for her to get strong enough to safely return home.
Psychosocial situation interfering with care in that she is not able to take care of herself, daughter has to lift her, has had some falls.
Subjective/Objective
Chief Complaint
ACS Heme Onc
Subjective
Remains tired and is hard of hearing. Sleeps a lot.
Vital Signs:
Vital Signs
Temp Pulse Resp BP Pulse Ox
99.0 F 94 16 142/68 99
06/03/23 23:24 06/03/23 23:24 06/03/23 23:24 06/03/23 23:24 06/03/23 23:24
Lab Results:
Laboratory Data
WBC 3.6 10^3/uL (4.8-10.8) L 06/04/23 03:43
Hgb 9.6 g/dL (12.0-16.0) L 06/04/23 03:43
Plt Count 286 10^3/uL (130-400) 06/04/23 03:43
eGFR > 60.00 06/04/23 03:43
Physical Exam
Cardiology: S1 and S2
Pulmonary: Clear
GI: Soft
[2023-06-04 07:30] VITALS: BP 132/79
[2023-06-04] MEDS: ADVAIR HFA 115/21 MCG INHALER INH (07:46)
--- NOTE | 2023-06-04 08:07 | W.PN.HOSP.TC ---
Today's Communication/Plan
-
Cont abx
PT/OT
pain control
discharge planning
Assessment / Plan
Assessment / Plan
Physical Exam
General: No acute distress
HEENT: hard of hearing
CVS: S1-S2 normal
Chest: CTA B/L
Abdomen: Soft, NT / Bowel sounds present
Extremities: No edema, normal pulses
[employer]EL[employer]:AOx3 waisting of palmar muscles. Proximal muscle weakness, upper extremity and lower extremity
68F Breast Ca Mets Sz Neuropathy amb dysfunction asthma IBS arthritis DVT/PE Eliquis Depression Anxiety Chronic Back pain
MRI of the brain-no new intraparenchymal brain metastasis. Metastasis appears improved from prior imaging. Decreased v vasogenic edema in the right frontal lobe
Cervical spine MRI-diffuse osseous metastatic disease throughout the cervical spine and upper thoracic spine. No MRI evidence of pathological compression fracture or extraosseous metastatic soft tissue.
MRI T-spine appreciated
-extensive multifocal osseous metastatic disease no MRI evidence for acute path fx or extra osseous ext malignancy
-chronic vertebral endplate fractures T6, T10, T11, and L1
-moderate-sized central disc herniation C4/C5 causing mod spinal cord compression and central nicolette stenosis
-small to moderate disc herniation C5/C6 causing mild spinal cord compression and central canal stenosis
-small disc herniation T7/T8 mild spinal cord compression
-small to moderate sized left central disc herniation T8/T9
# Generalized weakness/deconditioning
#upper ext numbness neuropathic pain, lower ext weakness
Patient is in very poor shape in terms of hygiene, unkempt appearance poor oral hygiene
Global weakness and deconditioning likely secondary to neuropathy, malignancy and being on treatment
PT OT appreciated SNF rehab
Head CT metastatic lesion again found though appear improved from prior imaging
Neuro eval appreciated subacute onset b/l hand weakness likely d/t cervical myelopathy possible benefit cervical laminectomy, Gabapentin increased to 300 mg TID from 300 mg HS
Discussed with neurosx who reviewed patient's imaging assessed cervical myelopathy less likely, cervical laminectomy unlikely to provide any benefit, no surgical intervention recommended
# UTI
Cx appreciated Klebsiella ESBL
switched from Ceftriaxone to Meroponem
ID eval appreciated 3 day course planned last day of meropenem 06/04 10AM
#Anemia-
Iron studies
Drop in Hb due to IVF
H&H stable at this time
# Diminished urine output-S/P 1 IVF
# Mild hyponatremia-SIADH
# History of right breast cancer-diagnosed in 2003 treated with radiation, lumpectomy and possibly tamoxifen.
October 2022-diagnosed with multiple dural based [employer] mets with vasogenic edema-placed on Keppra and Decadron.� Not on Decadron anymore.� She completed radiation treatment in November
Now has metastatic breast cancer with right-sided breast mass in the upper outer quadrant, mediastinal adenopathy, lung nodules, bone metastasis.� Breast biopsy invasive ductal carcinoma ER/NV positive and HER2 negative.
Patient was started on letrozole 2.5 mg daily and� Ibrance in December 2022
Started on Faslodex March 2023 because of progression on Ibrance plus letrozole.
Last PET scan 04/02/2023-interval worsening of disease.
follows with Dr. Renay Gonzalez
Oncology eval appreciated
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
# Chronic back pain
#Anxiety depression-Seroquel
# Malnutrition-type unclear
Continue dronabinol, Megace
# Neuropathy-likely secondary to malignancy/chemo/hormonal therapy
Continue gabapentin started on 300 mg HS
increased to 300 mg TID as per neuro above
# Asthma-stable exam-continue Advair, albuterol inhalers as needed
# Gait dysfunction mostly wheelchair/chair bound.
Has been getting
She has pain and also proximal weakness
MRI T Spine appreciated as above
Metastasis cervical spine and brain
# Osteoarthritis
# Obesity
# IBS
# DVT prophylaxis-Eliquis
# CODE STATUS Full Code
Discussed with patient and her daughter Merlene
05/31/23-Hospitalist discussed with patient's daughter on the phone in detail. Family states that she works all day and patient mostly sits in the chair. She could stand and get to commode or wheelchair in the past however she
has not been doing that for the past few days. She is been progressively getting worse. They were thinking about placing her.
I spent a total of 50 minutes with the patient or on the floor. More than 50% of this time involved counseling and coordination of care.
Anticipated Discharge: 24 - 48 hours
Subjective/Interval History
-
Date of Service: June 04, 2023
No acute distress. pain upper ext's improved, numbness however persists.
Objective Data
-
Labs:
Laboratory Results
06/04/23
03:43
WBC 3.6 L
Hgb 9.6 L
Hct 28.3 L
Plt Count 286
Sodium 135
Potassium 3.8
Chloride 109 H
Carbon Dioxide 21 L
BUN 10
Creatinine 0.5 L
Glucose 111 H
Calcium 8.2 L
Vital Signs:
Vital Signs
Temp Pulse Resp BP Pulse Ox
99.0 F 94 16 142/68 99
06/03/23 23:24 06/03/23 23:24 06/03/23 23:24 06/03/23 23:24 06/03/23 23:24
I&O
06/03/23 06/04/23 06/05/23
06:59 06:59 06:59
Intake Total 880 / 880 600 / 600
Output Total 100 / 100
Balance 780 / 780 600 / 600
[2023-06-04] MEDS: MEGACE ORAL SUSPENSION 800 MG PO (08:49)
[2023-06-04] MEDS: MIRALAX PO (08:49)
[2023-06-04] MEDS: COLACE PO ×2 (08:49→21:27)
[2023-06-04] MEDS: VISBIOME 2 CAP PO (08:50)
[2023-06-04] MEDS: PROTONIX 40 MG PO (08:50)
[2023-06-04] MEDS: ELIQUIS 2.5 MG PO ×2 (08:50→21:27)
[2023-06-04] MEDS: KEPPRA 1000 MG PO ×2 (08:50→21:27)
[2023-06-04] MEDS: NEURONTIN 300 MG PO ×3 (08:50→21:28)
[2023-06-04] MEDS: MARINOL 2.5 MG PO ×2 (08:50→17:06)
--- NOTE | 2023-06-04 11:57 | CM ---
Reviewed the chart notes and spoke with the patient at the bedside. PT recommending SNF. Referrals sent via [facility]. CM continues to be available to patient/family and is monitoring medical plan for needs at discharge.
Plan: Discharge to SNF once bed found and medically stable.
[2023-06-04 13:17] VITALS: BP 124/72; PULSE 103; O2SAT 98
[2023-06-04 13:21] VITALS: BP 153/82; PULSE 83
--- NOTE | 2023-06-04 14:16 | PN.CDI ---
CDI
- -
CDI:
Physician Documentation Request
Admit Date: 06/02/23 10:20
Dear Doctor Rachana,
Please review the following and provide your response in the progress notes.
Clinical Indicators:
Pt admitted with weakness/ Breast Cancer with Brain /Bone and Lung mets
Documented per Wound care panel on admission, right medical coccyx Stage 2 pressure injury. ..silicone border in place .
Physician documentation of the type and location of wounds is required for compliant documentation. Based on the above clinical findings and your assessment, please provide the following in your progress note:
1. Location of the ulcer/wound, including laterality.
2. Type (etiology) of ulcer/wound:
- Pressure (decubitus) ulcer
- Non-Pressure Ulcer
- Other
Use of terms such as suspected, likely, concern for, or probable (associated with a specific diagnosis that is being evaluated, monitored, or treated as if it exists) are acceptable and can be coded in the inpatient setting, when documented at the
time of discharge.
Thank you,
Mercedes White RN
CDI Specialist
[employer]
Please use your independent medical judgment in providing your response.
*Source: National Pressure Ulcer Advisory Panel (NPUAP)
--- NOTE | 2023-06-04 14:50 | W.PN.ID1 ---
Date of Service
Date of Service: June 04, 2023
Today's Communication
- continue meropenem - plan 3 day course - last dose 3/7 at 10AM
Assessment / Plan
ESBL Klebsiella UTI
Ambulatory Dysfunction
Metastatic R Breast Cancer
- no leukocytosis, fevers or hypotension
- continue meropenem - plan 3 day course - last dose 3/7 at 10AM
- probiotics while on broad spectrum rx
Chief Complaint
-: UTI
Subjective / Review of Systems
afebrile
bp stable
without leukocytosis
cr stable
no complaints
Vital Signs / Physical Exam
Vital Signs
Vital Signs
Temp Pulse Resp BP Pulse Ox
98.1 F 83 14 132/79 99
06/04/23 07:30 06/04/23 07:30 06/04/23 07:30 06/04/23 07:30 06/04/23 07:30
Physical Exam
Constitutional: No Acute Distress
Cardiovascular: Regular Rate and S1/S2; Negative Murmur or Rub
Pulmonary: Clear and Symmetric; Negative Wheezes or Rales
Gastrointestinal: Soft, Non Tender, Non Distended and Normal Bowel Sounds
Skin: Warm and Dry; Negative Rash or Jaundice
Objective Data
Lab Data
Lab Results
06/04/23 03:43
06/04/23 03:43
Estimated Creat Clear 95 ml/min 06/04/23 03:43
Total Bilirubin 0.9 mg/dl (0.2-1.3) 05/30/23 00:08
AST 22 U/L (14-36) 05/30/23 00:08
ALT 11 U/L (0-35) 05/30/23 00:08
Alkaline Phosphatase 227 U/L (38-126) H 05/30/23 00:08
Most recent labs reviewed.
Micro Results:
05/30/23 03:13 Urine Culture - Final
Urine Klebsiella pneumoniae-ESBL
05/30/23 00:08 Influenza Types A & B ([place]) - Final
Nasal Swab Negative for Influenza A & B, NAAT
Negative results must be combined with clinical observations
and patient history.
Nucleic Acid Amplification test (NAAT)performed on the
[employer] platform.
[2023-06-04 15:02] VITALS: BP 137/88
[2023-06-04] MEDS: ADVAIR HFA 115/21 MCG INHALER 2 PUFF INH (20:35)
[2023-06-04] MEDS: SENOKOT PO (21:27)
[2023-06-04] MEDS: SEROQUEL 50 MG PO (21:28)
[2023-06-04 23:34] VITALS: BP 118/75
[2023-06-05] MEDS: MERREM 1000 MG IV (00:12)
[2023-06-05] MEDS: STERILE WATER FOR INJECTION 20 ML IV (00:13)
[2023-06-05 06:11] LABS: Hematocrit 28.3 % (37.0-47.0); Hemoglobin 9.5 g/dL (12.0-16.0); Mean Corp Hgb Conc. 33.6 g/dL (33.0-37.0); Mean Corpuscular Hgb 30.5 pg (27.0-31.0); Mean Platelet Volume 9.2 fL (7.4-10.4); Platelet Count 277 10^3/uL (130-400); Red Blood Cell Count 3.11 10^6/uL (4.20-5.40); Red Cell Dist. Width 19.2 % (11.5-14.5)
[2023-06-05 06:53] LABS: Blood Urea Nitrogen 11 mg/dl (7-17); Calcium 8.5 mg/dl (8.4-10.2); Carbon Dioxide 21 mmol/L (22-30); Chloride 105 mmol/L (98-107); Estimated Creatinine Clearance 95 ml/min; Glucose 101 mg/dl (70-99); Phosphorus 4.2 mg/dl (2.5-4.5); Sodium 135 mmol/L (135-145); eGFR > 60.00
--- NOTE | 2023-06-05 07:14 | W.PN.HOSP.TC ---
Today's Communication/Plan
-
Discharge planning
Assessment / Plan
Assessment / Plan
Physical Exam
General: No acute distress
HEENT: hard of hearing
CVS: S1-S2 normal
Chest: CTA B/L
Abdomen: Soft, NT / Bowel sounds present
Extremities: No edema, normal pulses
CURRENCY COUNTER:AOx3 waisting of palmar muscles. Proximal muscle weakness, upper extremity and lower extremity
68F Breast Ca Mets Sz Neuropathy amb dysfunction asthma IBS arthritis DVT/PE Eliquis Depression Anxiety Chronic Back pain
MRI of the brain-no new intraparenchymal brain metastasis. Metastasis appears improved from prior imaging. Decreased v vasogenic edema in the right frontal lobe
Cervical spine MRI-diffuse osseous metastatic disease throughout the cervical spine and upper thoracic spine. No MRI evidence of pathological compression fracture or extraosseous metastatic soft tissue.
MRI T-spine appreciated
-extensive multifocal osseous metastatic disease no MRI evidence for acute path fx or extra osseous ext malignancy
-chronic vertebral endplate fractures T6, T10, T11, and L1
-moderate-sized central disc herniation C4/C5 causing mod spinal cord compression and central nicolette stenosis
-small to moderate disc herniation C5/C6 causing mild spinal cord compression and central canal stenosis
-small disc herniation T7/T8 mild spinal cord compression
-small to moderate sized left central disc herniation T8/T9
# Generalized weakness/deconditioning
#upper ext numbness neuropathic pain, lower ext weakness
Patient is in very poor shape in terms of hygiene, unkempt appearance poor oral hygiene
Global weakness and deconditioning likely secondary to neuropathy, malignancy and being on treatment
PT OT appreciated SNF rehab
Head CT metastatic lesion again found though appear improved from prior imaging
Neuro eval appreciated subacute onset b/l hand weakness likely d/t cervical myelopathy possible benefit cervical laminectomy, Gabapentin increased to 300 mg TID from 300 mg HS
Discussed with neurosx who reviewed patient's imaging assessed cervical myelopathy less likely, cervical laminectomy unlikely to provide any benefit, no surgical intervention recommended
# UTI
Cx appreciated Klebsiella ESBL
switched from Ceftriaxone to Meroponem
ID eval appreciated 3 day course planned last day of meropenem 06/04 10AM
#Anemia-
Iron studies
Drop in Hb due to IVF
H&H stable at this time
# Diminished urine output-S/P 1 IVF
# Mild hyponatremia-SIADH
# History of right breast cancer-diagnosed in 2003 treated with radiation, lumpectomy and possibly tamoxifen.
October 2022-diagnosed with multiple dural based CURRENCY COUNTER mets with vasogenic edema-placed on Keppra and Decadron.� Not on Decadron anymore.� She completed radiation treatment in November
Now has metastatic breast cancer with right-sided breast mass in the upper outer quadrant, mediastinal adenopathy, lung nodules, bone metastasis.� Breast biopsy invasive ductal carcinoma ER/LA positive and HER2 negative.
Patient was started on letrozole 2.5 mg daily and� Ibrance in December 2022
Started on Faslodex March 2023 because of progression on Ibrance plus letrozole.
Last PET scan 04/02/2023-interval worsening of disease.
follows with Dr. Renay Gonzalez
Oncology eval appreciated
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
# Chronic back pain
#Anxiety depression-Seroquel
# Malnutrition-type unclear
Continue dronabinol, Megace
# Neuropathy-likely secondary to malignancy/chemo/hormonal therapy
Continue gabapentin started on 300 mg HS
increased to 300 mg TID as per neuro above
# Asthma-stable exam-continue Advair, albuterol inhalers as needed
# Gait dysfunction mostly wheelchair/chair bound.
Has been getting
She has pain and also proximal weakness
MRI T Spine appreciated as above
Metastasis cervical spine and brain
# Osteoarthritis
# Obesity
# IBS
# DVT prophylaxis-Eliquis
# CODE STATUS Full Code
Discussed with patient and her daughter Merlene
05/31/23-Hospitalist discussed with patient's daughter on the phone in detail. Family states that she works all day and patient mostly sits in the chair. She could stand and get to commode or wheelchair in the past however she
has not been doing that for the past few days. She is been progressively getting worse. They were thinking about placing her.
I spent a total of 50 minutes with the patient or on the floor. More than 50% of this time involved counseling and coordination of care.
Anticipated Discharge: Within 24 hours
Subjective/Interval History
-
Date of Service: June 05, 2023
No acute distress. Neuropathy pain upper ext's continues to improve, numbness persists. Otherwise reports feeling well. denies new acute issues at this time.
Objective Data
-
Labs:
Laboratory Results
06/05/23
04:53
WBC 4.0 L
Hgb 9.5 L
Hct 28.3 L
Plt Count 277
Sodium 135
Potassium 4.0
Chloride 105
Carbon Dioxide 21 L
BUN 11
Creatinine 0.5 L
Glucose 101 H
Calcium 8.5
Vital Signs:
Vital Signs
Temp Pulse Resp BP Pulse Ox
98.4 F 93 18 118/75 99
06/04/23 23:34 06/04/23 23:34 06/04/23 23:34 06/04/23 23:34 06/04/23 23:34
I&O
06/04/23 06/05/23 06/06/23
06:59 06:59 06:59
Intake Total 600 / 600 1120 / 1120
Balance 600 / 600 1120 / 1120
[2023-06-05] MEDS: ADVAIR HFA 115/21 MCG INHALER 2 PUFF INH ×2 (07:41→20:16)
[2023-06-05 07:55] VITALS: BP 142/80
[2023-06-05] MEDS: VISBIOME 2 CAP PO (08:46)
[2023-06-05] MEDS: ELIQUIS 2.5 MG PO ×2 (08:46→20:22)
[2023-06-05] MEDS: MARINOL 2.5 MG PO ×2 (08:46→17:41)
[2023-06-05] MEDS: STERILE WATER FOR INJECTION IV ×4 (08:47→21:41)
[2023-06-05] MEDS: NEURONTIN 300 MG PO ×3 (08:47→21:36)
[2023-06-05] MEDS: MERREM IV ×2 (08:47→11:15)
[2023-06-05] MEDS: MEGACE ORAL SUSPENSION 800 MG PO (08:47)
[2023-06-05] MEDS: PROTONIX 40 MG PO (08:47)
[2023-06-05] MEDS: COLACE 100 MG PO (08:47)
[2023-06-05] MEDS: MIRALAX PO ×3 (08:47→11:29)
[2023-06-05] MEDS: KEPPRA 1000 MG PO ×2 (08:47→20:22)
[2023-06-05 13:46] VITALS: BP 134/80; PULSE 97; O2SAT 98
--- NOTE | 2023-06-05 15:06 | W.PN.ID1 ---
Date of Service
Date of Service: June 05, 2023
Today's Communication
- completed meropenem - follow up with PCP
Assessment / Plan
ESBL Klebsiella UTI
Ambulatory Dysfunction
Metastatic R Breast Cancer
- completed meropenem - follow up with PCP
Chief Complaint
-: UTI
Subjective / Review of Systems
afebrile
bp stable
mild leukopenia ongoing, cr stable
Vital Signs / Physical Exam
Vital Signs
Vital Signs
Temp Pulse Resp BP Pulse Ox
97.4 F 85 17 142/80 99
06/05/23 07:55 06/05/23 07:55 06/05/23 07:55 06/05/23 07:55 06/05/23 07:55
Physical Exam
Constitutional: No Acute Distress and Comfortable
Cardiovascular: Regular Rate
Pulmonary: Symmetric and Non Labored
Gastrointestinal: Non Distended
Skin: Dry; Negative Rash or Jaundice
Neurological: Awake
Objective Data
Lab Data
Lab Results
06/05/23 04:53
06/05/23 04:53
Estimated Creat Clear 95 ml/min 06/05/23 04:53
Total Bilirubin 0.9 mg/dl (0.2-1.3) 05/30/23 00:08
AST 22 U/L (14-36) 05/30/23 00:08
ALT 11 U/L (0-35) 05/30/23 00:08
Alkaline Phosphatase 227 U/L (38-126) H 05/30/23 00:08
Most recent labs reviewed.
Micro Results:
05/30/23 03:13 Urine Culture - Final
Urine Klebsiella pneumoniae-ESBL
05/30/23 00:08 Influenza Types A & B ([place]) - Final
Nasal Swab Negative for Influenza A & B, NAAT
Negative results must be combined with clinical observations
and patient history.
Nucleic Acid Amplification test (NAAT)performed on the
[employer] platform.
[2023-06-05 15:08] VITALS: BP 125/77
--- NOTE | 2023-06-05 15:21 | CM ---
Reviewed the chart notes and spoke with the patient at the bedside. [facility] willing to offer a bed for the patient. CM continues to be available to patient/family and is monitoring medical plan for needs at discharge.
Plan: Discharge to [facility] when medically stable. No precert required.
--- NOTE | 2023-06-05 16:43 | PN.CDI ---
CDI
- -
CDI:
Physician Documentation Request
Admit Date: 06/02/23 10:20
Dear Doctor Rachana,
Please review the following and provide your response in the progress notes.
Clinical Indicators:
Pt admitted with Metastatic Breast cancer to bone/lung/Brain/UTI
Documented throughout the record, ' Malnutrition-type unclear Continue dronabinol, Megace...'
Nutrition note 06/03, ' Weight hx: 246 lbs 5 oz from 12/03; reflecting a significant weight loss of 60 lbs (24.3%) x 6 months - significant. Diet: regular agree to encourage adequate intakes. Intakes have varied during admit, average 69% completion of
9 meals per chart. .... Pt reports extremely poor intakes over the past 6+ months due to chemotherapy side effects. Pt notes poor appetite....Per ASPEN/AND guidelines, pt meets for severe malnutrition in the context of chronic illness as evidenced
by 24.3% weight loss and <50% intake estimated needs x 6 months.'
If possible, please provide in your progress notes, additional specificity regarding the severity of the malnutrition:
Severe
Moderate
Other (please specify)
[place] Criteria (ACP Hospitalist 2017)
2 or more criteria must be present for either
non severe or severe malnutrition
Note that the criteria differs related to the
presence of an acute or chronic illness
Acute Illness Chronic Illness
Energy Intake Non Severe: <75% for >7 days Non Severe: <75% for >1 month
Severe: <50% for >5 days Severe: <75% for >1 month
Weight Loss Non Severe: 1-2% over 1 week Non Severe: 5% over 1 month
5% over 1 month 7.5% over 3 months
7.5% over 3 months 10% over 6 months
1 year N/A 20% over 1 year
Severe: >2% over 1 week Severe: >5% over 1 month
>5% over 1 month >7.5% over 3 months
>7.5% over 3 months >10% over 6 months
1 year N/A >20% over 1 year
Body Fat Non Severe: Mild Decrease Non Severe: Mild Loss
Severe: Moderate Decrease Severe: Severe Loss
Muscle Mass Non Severe: Mild Decrease Non Severe: Mild Loss
Severe: Moderate Decrease Severe: Severe Loss
Fluid Accumulation Non Severe: Mild Accumulation Non Severe: Mild Accumulation
Severe: Moderate to severe Severe: Moderate to severe
accumulation accumulation
Reduced Fundraising Manager Strength Non Severe: N/A Non Severe: N/A
Severe: Measurably reduced Severe: Measurably reduced
Use of terms such as suspected, likely, concern for, or probable (associated with a specific diagnosis that is being evaluated, monitored, or treated as if it exists) are acceptable and can be coded in the inpatient setting, when documented at the
time of discharge.
Thank you,
Mercedes White RN
CDI Specialist
[facility]
Please use your independent medical judgment in providing your response.
[2023-06-05] MEDS: SENOKOT PO (20:23)
[2023-06-05] MEDS: COLACE PO (20:23)
[2023-06-05] MEDS: SEROQUEL 50 MG PO (21:36)
[2023-06-05 23:09] VITALS: BP 114/66
--- NOTE | 2023-06-06 07:14 | W.PN.HOSP.TC ---
Addendum entered and electronically signed by Tali Reich MD 06/06/23 15:08:
right medical coccyx Stage 2 pressure injury
cont local wound care
Addendum entered and electronically signed by Tali Reich MD 06/06/23 15:04:
severe malnutrition
Original Note:
Today's Communication/Plan
-
discharge
Assessment / Plan
Assessment / Plan
Physical Exam
General: No acute distress
HEENT: hard of hearing
CVS: S1-S2 normal
Chest: CTA B/L
Abdomen: Soft, NT / Bowel sounds present
Extremities: No edema, normal pulses
OPERATIONS AND MAINTENANCE MANAGER:AOx3 waisting of palmar muscles. Proximal muscle weakness, upper extremity and lower extremity
68F Breast Ca Mets Sz Neuropathy amb dysfunction asthma IBS arthritis DVT/PE Eliquis Depression Anxiety Chronic Back pain
MRI of the brain-no new intraparenchymal brain metastasis. Metastasis appears improved from prior imaging. Decreased v vasogenic edema in the right frontal lobe
Cervical spine MRI-diffuse osseous metastatic disease throughout the cervical spine and upper thoracic spine. No MRI evidence of pathological compression fracture or extraosseous metastatic soft tissue.
MRI T-spine appreciated
-extensive multifocal osseous metastatic disease no MRI evidence for acute path fx or extra osseous ext malignancy
-chronic vertebral endplate fractures T6, T10, T11, and L1
-moderate-sized central disc herniation C4/C5 causing mod spinal cord compression and central nicolette stenosis
-small to moderate disc herniation C5/C6 causing mild spinal cord compression and central canal stenosis
-small disc herniation T7/T8 mild spinal cord compression
-small to moderate sized left central disc herniation T8/T9
# Generalized weakness/deconditioning
#upper ext numbness neuropathic pain, lower ext weakness
poor hygiene
Global weakness and deconditioning likely secondary to neuropathy, malignancy and associate treatment
PT OT appreciated SNF rehab
Head CT metastatic lesion again found though appear improved from prior imaging
Neuro eval appreciated subacute onset b/l hand weakness likely d/t cervical myelopathy possible benefit cervical laminectomy, Gabapentin increased to 300 mg TID from 300 mg HS
Discussed with neurosx who reviewed patient's imaging assessed cervical myelopathy less likely, cervical laminectomy unlikely to provide any benefit, no surgical intervention recommended
# UTI
Cx appreciated Klebsiella ESBL
switched from Ceftriaxone to Meroponem
ID eval appreciated 3 day course meropenem completed
#Anemia-
Iron studies notes anemia of chronic disease, iron lvl wnl
Drop in Hb due to IVF
H&H stable at this time
# Mild hyponatremia-SIADH
# History of right breast cancer-diagnosed in 2003 treated with radiation, lumpectomy and possibly tamoxifen.
October 2022-diagnosed with multiple dural based OPERATIONS AND MAINTENANCE MANAGER mets with vasogenic edema-placed on Keppra and Decadron.� Not on Decadron anymore.� She completed radiation treatment in November
Now has metastatic breast cancer with right-sided breast mass in the upper outer quadrant, mediastinal adenopathy, lung nodules, bone metastasis.� Breast biopsy invasive ductal carcinoma ER/FL positive and HER2 negative.
Patient was started on letrozole 2.5 mg daily and� Ibrance in December 2022
Started on Faslodex March 2023 because of progression on Ibrance plus letrozole.
Last PET scan 04/02/2023-interval worsening of disease.
follows with Dr. Renay Gonzalez
Oncology eval appreciated
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
# Chronic back pain
#Anxiety depression-Seroquel
# Malnutrition-type unclear
Continue dronabinol, Megace
# Neuropathy-likely secondary to malignancy/chemo/hormonal therapy
Continue gabapentin started on 300 mg HS
increased to 300 mg TID as per neuro above
# Asthma-stable exam-continue Advair, albuterol inhalers as needed
# Gait dysfunction mostly wheelchair/chair bound.
She has pain and also proximal weakness
MRI T Spine appreciated as above
Metastasis cervical spine and brain
# Osteoarthritis
# Obesity
# IBS
# DVT prophylaxis-Eliquis
# CODE STATUS Full Code
05/31/23-Hospitalist discussed with patient's daughter on the phone in detail. Family states that she works all day and patient mostly sits in the chair. She could stand and get to commode or wheelchair in the past however she
has not been doing that for the past few days. She is been progressively getting worse. They were thinking about placing her.
medically stable for discharge SNF rehab with outpatient follow up recommendations
Total Time Preparing Discharge __52 minutes including examination of the patient, summary of the hospital stay, instructions for continuing care to all relevant caregivers; and preparation of discharge records, prescriptions, and referral
forms if necessary.
Anticipated Discharge: Today
Subjective/Interval History
-
Date of Service: June 06, 2023
Seen and examined at bedside in no acute distress resting comfortably in bed. Denies new acute issues at this time. Continues to report numbness upper ext but improved neuropathic pain.
Objective Data
-
Vital Signs:
Vital Signs
Temp Pulse Resp BP Pulse Ox
97.8 F 93 20 114/66 99
06/05/23 23:09 06/05/23 23:09 06/05/23 23:09 06/05/23 23:09 06/05/23 23:09
I&O
06/05/23 06/06/23 06/07/23
06:59 06:59 06:59
Intake Total 1120 / 1120 1180 / 1180
Balance 1120 / 1120 1180 / 1180
[2023-06-06] MEDS: ADVAIR HFA 115/21 MCG INHALER 2 PUFF INH ×2 (07:53→19:50)
[2023-06-06 08:04] VITALS: BP 129/70
[2023-06-06] MEDS: PROTONIX 40 MG PO (09:18)
[2023-06-06] MEDS: NEURONTIN 300 MG PO ×3 (09:19→21:06)
[2023-06-06] MEDS: MARINOL 2.5 MG PO ×2 (09:19→17:45)
[2023-06-06] MEDS: STERILE WATER FOR INJECTION IV ×2 (09:19→16:38)
[2023-06-06] MEDS: ELIQUIS 2.5 MG PO ×2 (09:19→21:06)
[2023-06-06] MEDS: KEPPRA 1000 MG PO ×2 (09:19→21:06)
[2023-06-06] MEDS: VISBIOME 2 CAP PO (09:19)
[2023-06-06] MEDS: MEGACE ORAL SUSPENSION 800 MG PO (09:20)
[2023-06-06] MEDS: COLACE PO ×2 (09:20→21:05)
[2023-06-06] MEDS: MIRALAX PO (09:20)
--- NOTE | 2023-06-06 11:33 | W.PN.ONC ---
Today's Communication / Plan
-
Discussed MRI brain and MRI C- and T-spines, no explanation for her upper extremity numbness.
She states the numbness started when she started Faslodex started 04/24, second treatment 05/08
She admits to taking concomitant letrozole
Psychosocial situation interfering with care
Will attempt to make arrangements to follow-up in the office to discuss continuation of therapy
Impression
Impression
Metastatic breast cancer s/p lumpectomy/XRT (2003) with mets to brain (XRT 11/2022), bone and lung (Ibrance 12/2022)
Palliative hormonal therapy (Letrozole and Ibrance discontinued, Faslodex on hold as of 05/22/23)
Profound weakness
Failure to thrive
Dry heaving, poor PO intake
Traumatic falls, ambulatory dysfunction
Acute urinary tract infection
Anxiety
Subjective/Objective
Subjective/Objective
No new complaints.
Vital Signs:
Vital Signs
Temp Pulse Resp BP Pulse Ox
97.5 F 81 16 129/70 93
06/06/23 08:04 06/06/23 08:04 06/06/23 08:04 06/06/23 08:04 06/06/23 08:04
Physical exam unchanged
Lab Results:
Laboratory Data
WBC 4.0 10^3/uL (4.8-10.8) L 06/05/23 04:53
Hgb 9.5 g/dL (12.0-16.0) L 06/05/23 04:53
Plt Count 277 10^3/uL (130-400) 06/05/23 04:53
eGFR > 60.00 06/05/23 04:53
--- NOTE | 2023-06-06 12:07 | CM ---
Addendum entered by Milvia Gallagher RN 06/06/23 16:00:
Transportation not able to be set-up until late tonight. Facility unable to accept today. Discharge tomorrow. Patient, RN and attending informed.
Addendum entered by Milvia Gallagher RN 06/06/23 14:42:
Reviewed the chart notes and spoke with the patient at the bedside. [facility] has offered a bed for the patient.
Plan: Discharge to [facility]. No precert required.
Call report to: [phone]
Fax report to: [phone]
Medical necessity and transport forms on chart.
Original Note:
IMM signed and placed on the chart.
--- NOTE | 2023-06-06 12:19 | W.PN.ID1 ---
Date of Service
Date of Service: June 06, 2023
Today's Communication
ID service will no longer actively follow this patient please recall for further questions
Assessment / Plan
ESBL Klebsiella UTI
Ambulatory Dysfunction
Metastatic R Breast Cancer
- completed meropenem - follow up with PCP
ID service will no longer actively follow this patient please recall for further questions
Chief Complaint
-: UTI
Subjective / Review of Systems
afebrile
bp stable
completed course of therapy
no cbc or bmp today
Vital Signs / Physical Exam
Vital Signs
Vital Signs
Temp Pulse Resp BP Pulse Ox
97.5 F 81 16 129/70 93
06/06/23 08:04 06/06/23 08:04 06/06/23 08:04 06/06/23 08:04 06/06/23 08:04
Physical Exam
Constitutional: No Acute Distress
Cardiovascular: Regular Rate
Pulmonary: Symmetric and Non Labored
Gastrointestinal: Non Distended
Skin: Dry; Negative Jaundice
Neurological: Negative Awake
Objective Data
Lab Data
Lab Results
06/05/23 04:53
06/05/23 04:53
Estimated Creat Clear 95 ml/min 06/05/23 04:53
Total Bilirubin 0.9 mg/dl (0.2-1.3) 05/30/23 00:08
AST 22 U/L (14-36) 05/30/23 00:08
ALT 11 U/L (0-35) 05/30/23 00:08
Alkaline Phosphatase 227 U/L (38-126) H 05/30/23 00:08
Most recent labs reviewed.
Micro Results:
05/30/23 03:13 Urine Culture - Final
Urine Klebsiella pneumoniae-ESBL
05/30/23 00:08 Influenza Types A & B ([place]) - Final
Nasal Swab Negative for Influenza A & B, NAAT
Negative results must be combined with clinical observations
and patient history.
Nucleic Acid Amplification test (NAAT)performed on the
[employer] platform.
[2023-06-06 15:22] VITALS: BP 141/77
--- NOTE | 2023-06-06 15:22 | W.DCSUMMARY ---
Discharge Summary
Discharge Data
Date of Admission: 06/02/23
Date of Discharge: 06/07/23
-
Pending Results: No
Hospital Course
68F with metastatic breast cancer lives at home with daughter.� Patient is mostly wheelchair bound, reports her daughter has to give total support for transfers.� She is also incontinent most of the time.� She reported taking 2 different hormonal
agents which caused neuropathy.� She was feeling weak and daughter tried to help her to bathroom and�she slowly went down to the floor prompting EMS call. MRI of the brain noted no new intraparenchymal brain metastasis. Metastasis appeared improved
from prior imaging.� Decreased v vasogenic edema in the right frontal lobe. Cervical spine MRI-diffuse osseous metastatic disease throughout the cervical spine and upper thoracic spine.� No MRI evidence of pathological compression fracture or
extraosseous metastatic soft tissue.
MRI T-spine appreciated
-extensive multifocal osseous metastatic disease no MRI evidence for acute path fx or extra osseous ext malignancy
-chronic vertebral endplate fractures T6, T10, T11, and L1
-moderate-sized central disc herniation C4/C5 causing mod spinal cord compression and central nicolette stenosis
-small to moderate disc herniation C5/C6 causing mild spinal cord compression and central canal stenosis
-small disc herniation T7/T8 mild spinal cord compression
-small to moderate sized left central disc herniation T8/T9
Generalized weakness/deconditioning, upper ext numbness neuropathic pain, lower ext weakness, poor hygiene, Global weakness and deconditioning likely secondary to neuropathy, malignancy and associate treatment, PT OT recommended SNF rehab. Head CT
metastatic lesion again found though appear improved from prior imaging
Neuro eval appreciated subacute onset b/l hand weakness likely d/t cervical myelopathy possible benefit cervical laminectomy, Gabapentin increased to 300 mg TID from 300 mg HS. Discussed with neurosx who reviewed patient's imaging assessed cervical
myelopathy less likely, cervical laminectomy unlikely to provide any benefit, no surgical intervention recommended. UTI, Cx appreciated Klebsiella ESBL, for which patient completed 3 day meropenem course as per ID recommendations. Medically
stable, patient was discharged to SNF rehab with outpatient follow up recommendations.
Discharge Plan
-
Patient Disposition: Senior Living/SNF
Discharge Diagnosis/Procedures: ESBL Klebsiella UTI
Ambulatory Dysfunction
Metastatic Breast Cancer
Failure to Thrive
Anxiety
Anemia of Chronic Disease
Mild Hyponatremia
History Deep Venous Thrombosis/Pulmonary Embolism on Eliquis
Severe Malnutrition
Neuropathy
Condition: Fair
Diet: Regular
Activity: With assistance and With Walker
Driving Restrictions: No driving
Bathing Restrictions: None
Blood Work: Please repeat CBC and BMP with primary care provider in 1 week of discharge.
Other Services: PT and OT
Activity Restrictions/Additional Instructions:
Please follow up with primary care provider in 1 week of discharge, Oncology in 1-2 weeks of discharge, and ENT (for evaluation of hearing loss) in 2 weeks of discharge .
Gabapentin increased to 300 mg three times a day for neuropathic pain.
Please take medications as prescribed/recommended and follow up with primary care provider and/or other healthcare provider involved in your care for refills and/or further adjustments to your medication regimen as necessary.
Referrals:
Renay Iniguez MD [Active] - in one to two weeks
Renard Persaud MD [Family Provider] - in one week
Chidi Santoro MD [Active] - in two to four weeks
Prescriptions:
New
gabapentin 300 mg Capsule
300 mg PO TID 30 Days Qty: 90 0RF
Continued
megestrol 400 mg/10 mL (40 mg/mL) Suspension
800 mg PO DAILY
Eliquis 2.5 mg Tablet
2.5 mg PO BID
fluticasone propion-salmeterol [Advair Diskus] 250-50 mcg/dose Blister With Device
1 inh INHALATION R BID
pantoprazole [Protonix] 40 mg tablet,delayed release (DR/EC)
40 mg PO DAILY
quetiapine [Seroquel] 50 mg tablet
50 mg PO HS
dronabinol 2.5 mg Capsule
2.5 mg PO BID Qty: 60 1RF
ondansetron 4 mg tablet,disintegrating
4 mg PO Q8HPRN PRN (Reason: nausea and vomiting) Qty: 30 0RF
albuterol sulfate 90 mcg/actuation Hfa Aerosol Inhaler
2 puff INHALATION R Q4HPRN PRN (Reason: sob)
levetiracetam 1,000 mg Tablet
1,000 mg PO Q12H
Discontinued
gabapentin 100 mg Capsule
300 mg PO HS
Discharge Orders:
Discharge Patient (As Directed); Ordered 06/06/23
Ordered By: Tali Reich
Discharge Date and Time
Discharge Date/Time: 06/07/23 12:41
[2023-06-06] MEDS: SENOKOT PO (21:05)
[2023-06-06] MEDS: SEROQUEL 50 MG PO (21:06)
[2023-06-06 23:30] VITALS: BP 135/71
[2023-06-07 07:25] VITALS: BP 150/75
[2023-06-07] MEDS: ADVAIR HFA 115/21 MCG INHALER 2 PUFF INH (07:37)
--- NOTE | 2023-06-07 07:59 | W.PN.HOSP.TC ---
Today's Communication/Plan
-
Medically stable for discharge today to SNF rehab
Assessment / Plan
Assessment / Plan
Physical Exam
General: No acute distress
HEENT: hard of hearing
CVS: S1-S2 normal
Chest: CTA B/L
Abdomen: Soft, NT / Bowel sounds present
Extremities: No edema, normal pulses
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 Proximal muscle weakness, upper extremity and lower extremity
68F Breast Ca Mets Sz Neuropathy amb dysfunction asthma IBS arthritis DVT/PE Eliquis Depression Anxiety Chronic Back pain
MRI of the brain-no new intraparenchymal brain metastasis. Metastasis appears improved from prior imaging. Decreased v vasogenic edema in the right frontal lobe
Cervical spine MRI-diffuse osseous metastatic disease throughout the cervical spine and upper thoracic spine. No MRI evidence of pathological compression fracture or extraosseous metastatic soft tissue.
MRI T-spine appreciated
-extensive multifocal osseous metastatic disease no MRI evidence for acute path fx or extra osseous ext malignancy
-chronic vertebral endplate fractures T6, T10, T11, and L1
-moderate-sized central disc herniation C4/C5 causing mod spinal cord compression and central nicolette stenosis
-small to moderate disc herniation C5/C6 causing mild spinal cord compression and central canal stenosis
-small disc herniation T7/T8 mild spinal cord compression
-small to moderate sized left central disc herniation T8/T9
# Generalized weakness/deconditioning
#upper ext numbness neuropathic pain, lower ext weakness
poor hygiene
Global weakness and deconditioning likely secondary to neuropathy, malignancy and associate treatment
PT OT appreciated SNF rehab
Head CT metastatic lesion again found though appear improved from prior imaging
Neuro eval appreciated subacute onset b/l hand weakness likely d/t cervical myelopathy possible benefit cervical laminectomy, Gabapentin increased to 300 mg TID from 300 mg HS
Discussed with neurosx who reviewed patient's imaging assessed cervical myelopathy less likely, cervical laminectomy unlikely to provide any benefit, no surgical intervention recommended
# UTI
Cx appreciated Klebsiella ESBL
switched from Ceftriaxone to Meroponem
ID eval appreciated 3 day course meropenem completed
#Anemia-
Iron studies notes anemia of chronic disease, iron lvl wnl
Drop in Hb due to IVF
H&H stable at this time
# Mild hyponatremia-SIADH
# History of right breast cancer-diagnosed in 2003 treated with radiation, lumpectomy and possibly tamoxifen.
October 2022-diagnosed with multiple dural based [employer] mets with vasogenic edema-placed on Keppra and Decadron.� Not on Decadron anymore.� She completed radiation treatment in November
Now has metastatic breast cancer with right-sided breast mass in the upper outer quadrant, mediastinal adenopathy, lung nodules, bone metastasis.� Breast biopsy invasive ductal carcinoma ER/MN positive and HER2 negative.
Patient was started on letrozole 2.5 mg daily and� Ibrance in December 2022
Started on Faslodex March 2023 because of progression on Ibrance plus letrozole.
Last PET scan 04/02/2023-interval worsening of disease.
follows with Dr. Renay Gonzalez
Oncology eval appreciated
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
# Chronic back pain
#Anxiety depression-Seroquel
# Malnutrition-type unclear
Continue dronabinol, Megace
# Neuropathy-likely secondary to malignancy/chemo/hormonal therapy
Continue gabapentin started on 300 mg HS
increased to 300 mg TID as per neuro above
# Asthma-stable exam-continue Advair, albuterol inhalers as needed
# Gait dysfunction mostly wheelchair/chair bound.
She has pain and also proximal weakness
MRI T Spine appreciated as above
Metastasis cervical spine and brain
# Osteoarthritis
# Obesity
# IBS
# DVT prophylaxis-Eliquis
# CODE STATUS Full Code
05/31/23-Hospitalist discussed with patient's daughter on the phone in detail. Family states that she works all day and patient mostly sits in the chair. She could stand and get to commode or wheelchair in the past however she
has not been doing that for the past few days. She is been progressively getting worse. They were thinking about placing her.
medically stable for discharge SNF rehab with outpatient follow up recommendations. Discharge delayed d/t transportation issues.
I spent a total of 20 minutes with the patient or on the floor. More than 50% of this time involved counseling and coordination of care.
Anticipated Discharge: Today
Subjective/Interval History
-
Date of Service: June 07, 2023
No acute distress. Comfortable. Awake conversant.
Objective Data
-
Vital Signs:
Vital Signs
Temp Pulse Resp BP Pulse Ox
98.1 F 90 15 135/71 98
06/06/23 23:30 06/07/23 07:42 06/07/23 07:42 06/06/23 23:30 06/07/23 07:42
I&O
06/06/23 06/07/23 06/08/23
06:59 06:59 07:59
Intake Total 1180 / 1180 240 / 240
Balance 1180 / 1180 240 / 240
[2023-06-07] MEDS: MEGACE ORAL SUSPENSION 800 MG PO (08:13)
[2023-06-07] MEDS: NEURONTIN 300 MG PO (08:13)
[2023-06-07] MEDS: KEPPRA 1000 MG PO (08:13)
[2023-06-07] MEDS: VISBIOME 2 CAP PO (08:13)
[2023-06-07] MEDS: MARINOL 2.5 MG PO (08:13)
[2023-06-07] MEDS: PROTONIX 40 MG PO (08:13)
[2023-06-07] MEDS: ELIQUIS 2.5 MG PO (08:13)
[2023-06-07] MEDS: COLACE PO (08:14)
[2023-06-07] MEDS: MIRALAX PO (08:14)
--- NOTE | 2023-06-07 09:35 | CM ---
CM following re: discharge planning.
Reviewed pt's chart, met with pt.
Discharge order noted. Pt is aware, expressed her agreement with discharge. IMM reviewed yesterday.
Per CM note a plan is to discharge pt to [facility].
CM spoke to [facility] nursing correctional supervisor and she confirmed that pt is accepted for admission today
Transportation arranged by with [facility] with pick up operator time 12:00 p.m. [facility]NC is in chart.
[facility] nursing report to: [phone]
Discharge instructions fax to: [phone]
D/C plan: [facility].
== END 2023-06-07 12:41 | DRG 542 ==
LOC: 2 NORTH 10:20
PROVIDERS: Emergency Medicine; ADMITTING PHYSICIAN Hospitalist; ATTENDING PHYSICIAN Internal Medicine; CONSULT PHYSICIAN Internal Medicine Hematology & Oncology; CONSULT PHYSICIAN Psychiatry & Neurology Neurology; CONSULT PHYSICIAN Student in an Organized Health Care Education/Training Program; EMERGENCY PHYSICIAN Emergency Medicine; FAMILY PHYSICIAN Family Medicine
DX: C79.51 Secondary malignant neoplasm of bone (principal); E43 Unspecified severe protein-calorie malnutrition; N39.0 Urinary tract infection, site not specified; C79.31 Secondary malignant neoplasm of brain; E22.2 Syndrome of inappropriate secretion of antidiuretic hormone; M50.021 Cervical disc disorder at C4-C5 level with myelopathy; M50.022 Cervical disc disorder at C5-C6 level with myelopathy; M51.04 Intervertebral disc disorders with myelopathy, thoracic region; Z16.12 Extended spectrum beta lactamase (ESBL) resistance; G95.9 Disease of spinal cord, unspecified; M84.58XA Pathological fracture in neoplastic disease, other specified site, initial encounter for fracture; C50.911 Malignant neoplasm of unspecified site of right female breast; D63.8 Anemia in other chronic diseases classified elsewhere; B96.1 Klebsiella pneumoniae [K. pneumoniae] as the cause of diseases classified elsewhere; F41.9 Anxiety disorder, unspecified; E86.0 Dehydration; F32.A Depression, unspecified; E66.9 Obesity, unspecified; K58.9 Irritable bowel syndrome, unspecified; R62.7 Adult failure to thrive; R26.2 Difficulty in walking, not elsewhere classified; G89.29 Other chronic pain; M54.9 Dorsalgia, unspecified; M19.90 Unspecified osteoarthritis, unspecified site; R32 Unspecified urinary incontinence; G62.9 Polyneuropathy, unspecified; R56.9 Unspecified convulsions; J45.909 Unspecified asthma, uncomplicated; G47.00 Insomnia, unspecified; L89.152 Pressure ulcer of sacral region, stage 2; S00.81XA Abrasion of other part of head, initial encounter; M48.02 Spinal stenosis, cervical region; M25.561 Pain in right knee; W18.39XA Other fall on same level, initial encounter; Z91.81 History of falling; Y93.89 Activity, other specified; Y92.002 Bathroom of unspecified non-institutional (private) residence as the place of occurrence of the external cause; Z92.21 Personal history of antineoplastic chemotherapy; Z86.718 Personal history of other venous thrombosis and embolism; Z86.711 Personal history of pulmonary embolism; Z92.3 Personal history of irradiation; Z96.643 Presence of artificial hip joint, bilateral; Z99.3 Dependence on wheelchair; Z79.01 Long term (current) use of anticoagulants; Z79.51 Long term (current) use of inhaled steroids; Z17.0 Estrogen receptor positive status [ER+]; Z88.7 Allergy status to serum and vaccine; Z91.048 Other nonmedicinal substance allergy status; Z79.811 Long term (current) use of aromatase inhibitors; Z11.52 Encounter for screening for COVID-19; Z68.27 Body mass index [BMI] 27.0-27.9, adult
CPT/HCPCS: 70450; 70553; 71046; 72156; 72157; 73564; 80048; 80053; 81003; 81015; 82533; 82607; 82728; 83540; 83550; 83735; 83930; 83935; 84100; 84300; 84443; 85025; 85027; 87077; 87086; 87186; 87502; 87811; 93005; 94640; 97163; 97167; 97530; 97535; A9575; J2185